=== PATIENT | male | born 1960 | race Caucasian/White ===

== ENCOUNTER 2019-03-05 09:22 | Day surgery (SDC) | payer OTHER ==
[~2019-03-05] VITALS: Ht 180.3 cm; Wt 115.6 kg
[~2019-03-05 09:22] MED LIST: HYDACE5; OXYACE5T PO; PROM25S PR
--- NOTE | 2019-03-05 11:11 | NUR ---
03/05/19 Maggie Ortiz 3 ATTEMPS 1ST RAULITO BLEW SECOND, MOVED THIRD SUCCESS AC
--- NOTE | 2019-03-05 15:19 | NUR ---
03/05/19 1519 Ashia Gomez LATE ENTRY----DURING DISCHARGE INSTRUCTIONS I ALSO WENT OVER WITH THE PATIENT THE RECOMMENDATIONS FROM DR HARTMAN REGARDING THAT HE GET A PRIMARY CARE AND HAVE ROUTINE LABS, PROSTATE CHECK AND ALSO DISCUSS THE POSSIBILITY OF SLEEP APNEA. PATIENT VERBALIZED UNDERSTANDING AND I ALSO WROTE THIS DOWN ON THE WRITTEN INSTRUCTIONS
--- NOTE | 2019-03-05 15:21 | NUR ---
03/05/19 1521 Ashia Gomez LATE ENTRY-----DURING THE PROCEDURE THE PATIENT WOULD OBSTRUCT AND REQUIRED ANGEL LIFT OR JAW THRUST TO KEEP HIM BREATHING. I DID PLACE AN #10 ORAL AIRWAY WHICH PATIENT TOLERATED WITHOUT PROBLEMS
== END 2019-03-05 12:17 | disposition home or self-care (01) ==
LOC: ORSCSDS 09:22
PROVIDERS: Internal Medicine Gastroenterology
PROC: 0DBP8ZX Excision of Rectum, Via Natural or Artificial Opening Endoscopic, Diagnostic (ICD-10-PCS; principal; 2019-03-05 11:00)
PROC: 0DBH8ZX Excision of Cecum, Via Natural or Artificial Opening Endoscopic, Diagnostic (ICD-10-PCS; principal; 2019-03-05 11:00)
PROC: 0DBM8ZX Excision of Descending Colon, Via Natural or Artificial Opening Endoscopic, Diagnostic (ICD-10-PCS; principal; 2019-03-05 11:00)
DX: Z12.11 Encounter for screening for malignant neoplasm of colon (principal); D12.0 Benign neoplasm of cecum; K63.5 Polyp of colon; K62.1 Rectal polyp; K64.8 Other hemorrhoids; K57.30 Diverticulosis of large intestine without perforation or abscess without bleeding; E66.01 Morbid (severe) obesity due to excess calories; Z68.38 Body mass index [BMI] 38.0-38.9, adult
CPT/HCPCS: 88305; J2704; J7120

== ENCOUNTER → 2021-03-06 | Outpatient (CLI) | payer OTHER ==
[~2021-03-06] MED LIST changes: +MONDOXYNE NL100 MG; +MONDOXYNE NL100 MG PO; +PRED1; +Prednisone10 MG PO; +SYMBICORT 160-4.6 GM INH; +SYMBICORT 16010.2 GM; +XARELTO15 MG PO
[2021-03-06 18:44] LABS: Alanine Aminotransfer (ALT/SGP 38 U/L (12-78); Albumin, Blood 2.7 g/dL (3.4-5.0); Albumin/Globulin Ratio 0.6 (0.8-1.8); Alk Phos 54 U/L (40-126); Anion Gap 9 mmol/L (6-16); Aspartate Aminotrans (AST/SGOT 33 U/L (12-37); Bilirubin, Total 0.6 mg/dL (0.1-1.0); Blood Urea Nitrogen 14 mg/dL (8-24); Bun/Creatinine Ratio 12.2 (12.0-20.0); CO2, Blood 25 mmol/L (21-32); Calcium, Blood 8.2 mg/dL (8.5-10.1); Chloride, Blood 99 mmol/L (98-108); Creatinine, Blood 1.15 mg/dL (0.60-1.20); Globulin, Blood 4.3 g/dL (2.2-4.0); Glomerular Filtration Rate >60 (60-); Glucose, Blood 131 mg/dL (70-99); Potassium, Blood 3.8 mmol/L (3.5-5.5); Sodium, Blood 133 mmol/L (136-145)
[2021-03-06 19:12] LABS: BASOPHILS ABSOLUTE AUTO 0.01 K/mm3 (0.00-0.23); BASOPHILS PERCENT AUTO 0 % (0-2); EOSINOPHILS PERCENT AUTO 0 % (0-6); Hematocrit 51.6 % (37.0-53.0); Hemoglobin 17.8 g/dL (13.5-17.5); IMMATURE GRAN ABSOLUTE AUTO 0.02 K/mm3 (0.00-0.10); IMMATURE GRAN PERCENT AUTO 0 % (0-1); LYMPHOCYTES PERCENT AUTO 10 % (21-46); MONOCYTES ABSOLUTE AUTO 0.78 K/mm3 (0.16-1.47); MONOCYTES PERCENT AUTO 11 % (4-13); Mean Corpuscular HGB 29.4 pg (26.0-34.0); Mean Corpuscular HGB Conc 34.5 g/dL (31.5-36.5); Mean Corpuscular Volume 85 fL (80-100); Mean Platelet Volume 12.2 fL (9.1-12.4); NEUTROPHILS ABSOLUTE AUTO 5.73 K/mm3 (1.96-9.15); NEUTROPHILS PERCENT AUTO 79 % (41-73); Platelet Count 95 K/mm3 (150-400); RDW Coefficient Variation 13.3 % (11.7-14.2); RDW Standard Deviation 41.7 fL (35.1-46.3); Red Blood Cell Count 6.05 M/mm3 (4.30-5.90); White Blood Cell Count 7.24 K/mm3 (4.00-11.30)
== END | disposition home or self-care (01) ==
LOC: LAB SHORT 18:30 → LAB 18:30
PROVIDERS: Physician Assistant
DX: U07.1 COVID-19 (principal); J12.82 Pneumonia due to coronavirus disease 2019
CPT/HCPCS: 80053; 85025; 85379

== ENCOUNTER 2021-03-11 18:16 | Inpatient (IN) | payer BC ==
[~2021-03-11] VITALS: Ht 177.8 cm; Wt 114.3 kg
[~2021-03-11 18:16] MED LIST changes: -MONDOXYNE NL100 MG; -PRED1; -SYMBICORT 160-4.6 GM INH; -SYMBICORT 16010.2 GM; -XARELTO15 MG PO
[2021-03-11 19:00] LABS: BASOPHILS ABSOLUTE AUTO 0.09 K/mm3 (0.00-0.23); BASOPHILS PERCENT AUTO 1 % (0-2); EOSINOPHILS PERCENT AUTO 0 % (0-6); Hematocrit 51.1 % (37.0-53.0); Hemoglobin 17.1 g/dL (13.5-17.5); IMMATURE GRAN ABSOLUTE AUTO 0.37 K/mm3 (0.00-0.10); IMMATURE GRAN PERCENT AUTO 3 % (0-1); LYMPHOCYTES ABSOLUTE AUTO 0.48 K/mm3 (0.84-5.20); LYMPHOCYTES PERCENT AUTO 4 % (21-46); MONOCYTES ABSOLUTE AUTO 1.09 K/mm3 (0.16-1.47); MONOCYTES PERCENT AUTO 9 % (4-13); Mean Corpuscular HGB 29.3 pg (26.0-34.0); Mean Corpuscular HGB Conc 33.5 g/dL (31.5-36.5); Mean Corpuscular Volume 88 fL (80-100); Mean Platelet Volume 10.2 fL (9.1-12.4); NEUTROPHILS ABSOLUTE AUTO 9.74 K/mm3 (1.96-9.15); NEUTROPHILS PERCENT AUTO 83 % (41-73); Platelet Count 235 K/mm3 (150-400); RDW Coefficient Variation 13.2 % (11.7-14.2); RDW Standard Deviation 42.4 fL (35.1-46.3); Red Blood Cell Count 5.84 M/mm3 (4.30-5.90); White Blood Cell Count 11.77 K/mm3 (4.00-11.30)
[2021-03-11 19:26] LABS: Alanine Aminotransfer (ALT/SGP 53 U/L (12-78); Albumin, Blood 2.2 g/dL (3.4-5.0); Albumin/Globulin Ratio 0.5 (0.8-1.8); Alk Phos 67 U/L (50-136); Anion Gap 6 mmol/L (6-16); Aspartate Aminotrans (AST/SGOT 44 U/L (12-37); Bilirubin, Total 0.7 mg/dL (0.1-1.0); Blood Urea Nitrogen 24 mg/dL (8-24); Bun/Creatinine Ratio 26.2 (12.0-20.0); CO2, Blood 26 mmol/L (21-32); Calcium, Blood 8.7 mg/dL (8.5-10.1); Chloride, Blood 107 mmol/L (98-108); Creatinine, Blood 0.92 mg/dL (0.60-1.20); Globulin, Blood 4.8 g/dL (2.2-4.0); Glomerular Filtration Rate >60 (60-); Glucose, Blood 195 mg/dL (70-99); Potassium, Blood 4.3 mmol/L (3.5-5.5); Sodium, Blood 139 mmol/L (136-145)
[2021-03-11] MEDS ORDERED: SYMBICORT 16010.2 GM (19:43)
[2021-03-11] MEDS ORDERED: PRED1 (19:43)
[2021-03-11] MEDS ORDERED: MONDOXYNE NL100 MG (19:44)
[2021-03-11] MEDS ORDERED: XARELTO15 MG PO (21:03)
--- NOTE | 2021-03-11 22:20 | NUR ---
ELLIOT ARRIVED TO THE FLOOR VIA GURNEY IN RESPIRTORY DISTRESS. EXHAUSTED FROM TACHYPNEA AROUND 40 BPM. JUST SLIGHT MOVEMENT FROM SIDE TO SIDE CAUSED INCREASE IN RESPIRATION TO 56 BPM, ANXIOUSNESS, ABDOMINAL BREATHING. LS RALES WITH COURSE CRACKLES BILATERALLY. UNABLE TO TALK WITH OUT LOOSING HIS BREATH. SLIGHTLY CONFUSED, PULLING OFF HIS MASK. RT IMMEDIATLY IN THE ROOM TO PLACE ON AIRVO. PATIENT VERY RESTLESS, ANXIOUS, STATING HE COULD NOT BREATH. THEN THE AIR WAS TO HOT. SATS WERE MAINTAINING LOW 80'S ON AIRVO, HAD TO PLACE THE NR ON AT 15L OVER IT. RUNNING 55L WITH FIO2 OF 91%. RT REMAINS IN THE ROOM WHILE CALL IS PLACED TO MD FOR ANXIETY MEDICATION.
--- NOTE | 2021-03-11 22:50 | NUR ---
O2 MAINTAINING 90% ON 55L OF O2 USING NR MASK AND AIRVO, FIO2 IS 100%. RESPIRATIONS ARE BETWEEN 45-55 BPM ABDOMINAL BREATHING. SPOKE TO MD AND GOT ORDER FOR 1MG OF IV ATIVAN. THIS WAS ADMINISTERED AT WHICH HE STOPPED PULLING HIS MASK OFF. GRUNTING EVERY NOW AND THEN TRYING TO CATCH HIS BREATH. CURRENTLY RESTING WHILE WE MONITOR HIS RESPIRTORY STATUS. BED ALARM IS ON.
--- NOTE | 2021-03-11 23:45 | NUR ---
ELLIOT HAS BEEN RESTING AFTER THE ATIVAN, MAINTAINING SATS AT 92% ON AIRVO AND NR MASK. CONTINUES WITH TACHYPNEA, ABDOMINA BREATHING. AT ONE POINT HE JUMPED OUT OF BED PULLING ON ALL THE MASK, WOULD NOT SIT BACK DOWN BECAUSE HE HAD TO USE THE BATHROOM, SWAYING BACK AND FORTH TO USE THE URINAL HE FELL DOWN ON THE BED TOOK WEEK TO STAND, GRUNTING TO CATCH HIS BREATH, SATS DROPPED INTO THE MID 80'S. FINNALLY WAS ABLE TO GET HIM BACK INTO BED, RESPIRATIONS UP TO THE 60'S. SLIGHTLY CONFUSED. AFTER TALKING WITH RT MORA AND DISCUSSING THE PATIENTS RESPIRTORY STATUS IT WAS AGREED THAT HE WOULD DO BETTER BEING PLACED ON CPAP/BIPAP AND MOVED TO PCU HE IS WAS SHOWING SIGNS OF TIRING OUT. WAS NOTIFED, ORDER GIVEN. CHARGE NOITIFED. SPOKE WITH TROY ASHTON FROM PCU FOR REPORT. PATIENT PLACED ON CPAP AND TRANSFERRED TO PCU 7. SISTER LISA NOTIFIED.
[2021-03-12] MEDS ORDERED: SYMBICORT 160-4.6 GM INH (00:21)
[2021-03-12 01:59] LABS: Source, Urine Catheter
[2021-03-12 02:02] LABS: Bilirubin, Urine Neg (Neg); Blood, Urine 1+ (Neg); Glucose Qualitative, Urine Neg (Neg); Ketones, Urine Neg (Neg); Leukocyte Esterase, Urine Neg (Neg); Nitrite, Urine Neg (Neg); Protein, Urine 3+ (Neg); Urobilinogen, Urine NORM (Normal)
--- NOTE | 2021-03-12 02:15 | NUR ---
CARE ASSUMPTION PT ARRIVED TO THE UNIOT ON CPAP AT 18 W 100% FIO2, O2 SATS >94%. PT AFEBRILE BUT VERY TREMULOUS, TEMP CALDERÓN PLACED PER ORDER. PT HYPERTENSIVE W SBP AT 200 SO HYDRALAZINE ORDER OBTAINED AND GIVEN W MODERATE RESULTS. PT CURRENTLY RESTING ON CPAP AT 12 W 75% FIO2.
[2021-03-12 02:16] LABS: Amorphous Mod (0-Heavy); Appearance, Urine Hazy (Clear); Bacteria Few /hpf; Color, Urine Yellow (P-Yellow); Squamous Epithelial Cells Few /hpf (Few); White Blood Cells, Urine 0-2 /hpf (0-5)
[2021-03-12 03:54] LABS: Base Excess Venous 5.9 mmol/L; Bicarbonate Venous 28.8 mmol/L (24.0-30.0); PCO2 Venous 41.4 mmHg (38-42); PO2 Venous 49.7 mmHg (38-42); pH Blood Venous 7.46 (7.34-7.37)
[2021-03-12 04:06] LABS: Mean Corpuscular HGB 28.8 pg (26.0-34.0); Mean Corpuscular HGB Conc 33.3 g/dL (31.5-36.5); Mean Corpuscular Volume 86 fL (80-100); Mean Platelet Volume 9.8 fL (9.1-12.4); Platelet Count 205 K/mm3 (150-400); RDW Standard Deviation 40.6 fL (35.1-46.3); Red Blood Cell Count 5.91 M/mm3 (4.30-5.90); White Blood Cell Count 14.74 K/mm3 (4.00-11.30)
[2021-03-12 04:46] LABS: Anion Gap 6 mmol/L (6-16); Blood Urea Nitrogen 18 mg/dL (8-24); Bun/Creatinine Ratio 22.3 (12.0-20.0); CO2, Blood 29 mmol/L (21-32); Calcium, Blood 8.9 mg/dL (8.5-10.1); Chloride, Blood 106 mmol/L (98-108); Creatinine, Blood 0.81 mg/dL (0.60-1.20); Glomerular Filtration Rate >60 (60-); Glucose, Blood 119 mg/dL (70-99); Potassium, Blood 3.9 mmol/L (3.5-5.5); Sodium, Blood 141 mmol/L (136-145)
--- NOTE | 2021-03-12 06:18 | NUR ---
MVA REACTOR OPERATOR SUMMARY PT HAS MAINTAINED O2 SATS >90% ON CPAP OF 12 W 90% FIO2 THIS SHIFT. PT IS MORE CONFUSED THIS AM AND ATTEMPTED TO GET OUT OF BED RESULTING IN AN ACCIDENTAL REMOVAL OF HIS CPAP CAUSING HIS O2 SATS TO DROP TO 68%, PT REMAINED IN LOW 70% FOR A COUPLE OF MINUTES UNTIL HE WAS ASSISTED ONTO HIOS SIDE AND HIS O2 SATS WENT BACK >89%. TEMP CALDERÓN PLACED AND PT HAVING A FEVER OF >101 SO PT GIVEN TYLENOL AND ICE PACKS PLACED IN ARM PITS TO WHICH HIS TEMP LOWERED. BP ELEVATED W SBP IN THE 200'S SO HYDRALAZINE GIVEN BRINGING SBP DOWN TO THE 160'S. HR HAS BEEN SR IN THE 90'S TO ST IN THE 100'S. WILL REPORT TO NICKOLAS ASHTON
--- NOTE | 2021-03-12 08:45 | NUR ---
PT ALERT AND ORIENTED X4. NEURO WNL. DENIES NUMBNESS/TINGLING. ANXIOUS AND STATES HE IS FEELING OVERWHELMED. BED ALARM ON. PATIENT GETTING OUT OF BED AND PULLING AT MASK. TELE SHOWING SINUS TACH WITH HR 100-110'S. BP ELEVATED. 1+ EDEMA NOTED IN LOWER EXTREMITIES. PPP. ON CPAP AT 12 AND 90% SATING MID-HIGH 90'S. RR 40-50. NO COUGH AT THIS TIME. LUNGS SOUNDING DIM. BOWEL TONES PRESENT. DISTENEDED ABDOMEN. CALDERÓN CATH IN PLACE DRAINING CLEAR/CAMPBELL URINE. SKIN OVERALL C/D/I. SOME DISCOLORATION SURROUNDING KNEES. LR INFUSING AT THIS TIME. CALL LIGHT IN REACH. CALL PLACED TO SISTER TY FOR UPDATE.
--- NOTE | 2021-03-12 12:30 | NUR ---
Pt goes by middle name CHARLES. He confirmed this when asked. Primary person/point of contact for FAMILY UPDATES: is Sister RHONA. Communication contact is sister RHONA [phone]. Pt indicates sons are his surrogate decision makers with nods. He is unable to speak with bipap on. Son Collin(36)local [phone]. Son Deng (39) lives in [place] [phone]. Pt has five siblings - Amalia, Jessica, Sonia, Ramesh and Rhona. Mom, Rita, is 85 and Rhona asks that we not contact her directly for updates. Rhona is keeping rest of the family updated. I was able to wake pt enough to discuss code status and surrogatae medical decision makers with him. He acknowledges that many family members may be involved and supporting each other if that is needed as I began to list the family members who had called to check on him and pass on messages that I delivered to him. He is able to indicate to me with his bedside RN in the room at this point that he would want intubation if needed. He noded yes and said yes. He responded the same to my question re: CPR. I asked if son, Collin, could be his proxy decision maker if he could not communicate with us & if Collin could share decision making with pt's sibs. He nodded yes. I did not know at the time that he has another, older son, who lives out of state, Deng [phone]. I contacted Collin first to update. He was very quiet and tearful on the phone. He asked that his Aunt Rhona continue to be our point of contact and primary person for communication to the rest of the family. When I spoke with Rhona, she agreed to that and stated Collin would need family support. Rhona was able to give me many details re: family and pt hx. She is not aware of any preexisting medical conditions including renal failure previously, outside of hypertention and obesity. He worked for 40 years at [employer]. He lost his to complications of type I diabetes 6 months before he retired. He retired in the last 1-2 years. Full update provided to Rhona and her questions were answered. I assured her and Charles that providers and staff will do everything possible to treat him and pray that he starts to respond to tx/recover. Planned with pt's RN and Rhona to keep her updated t/o the day. We will try to find pt's iphone, charge it and assist with phone calls to sons and siblings when able.
--- NOTE | 2021-03-12 12:40 | NUR ---
UPDATE: PATIENT STARTED ON PRECEDEX. ANXIETY DIMINISHING AND PATIENT SLEEPING ON AND OFF. AROUSABLE TO VOICE. ABLE TO ANSWER YES AND NO QUESTIONS. PRECEDEX IN FUSING AT 1.4 AT THIS TIME. VITAL SIGNS STABLE WITH ELEVATED BP. TEMP TRENDING IN RIGHT DIRECTION. PATIENT TRANSITIONED TO BIPAP WITH SETTINGS 15/8 AT 90%. SATING MID-HIGH 90'S. AVERAGING 35-40 RR. PALLIATIVE CARE IN TO SPEAK WITH PATIENT ABOUT CODE STATES. SEE PALLIATIVE CARE NOTE. PRECEDEX AND REMDESIVIR INFUSING AT THIS TIME. POWERGLIDE PLACED IN RIGHT UPPER ARM. Q2 TURNING. CALL LIGHT IN REACH. WILL CONTINUE TO MONITOR.
--- NOTE | 2021-03-12 15:00 | NUR ---
Update received from pt's RN. Pt has continued to have worsening resp status. Healthcare Sales Representative has visited and planning some resp tx, trying to prevent need for intubation but may be required today. Update called to sister. Will update again with changes and before I leave for the day.
[2021-03-12 15:37] LABS: PCO2 Arterial 42.4 mmHg (35-45); PO2 Arterial 51.6 mmHg (80-100); pH Blood Arterial 7.47 (7.35-7.45)
--- NOTE | 2021-03-12 16:10 | NUR ---
UPDATE RECEIVED FROM PT'S RN. Pt's ABG is not improved from this am with O2 of 51.6. CO2 WNL. Pt will require intubation shortly due to 100% FIO2 on bipap already per RN. Plan is for transfer to ICU and intubation soon. This update was relayed to sister, Rhona. Rhona is appropriately tearful and distressed. Allowed her to give more background and history on pt's life. I asked that she not give up hope at this time. She asked if anyone ever came of the ventilator with covid and I told her yes, and that we are hoping and putting for all efforts so that her brother will also. I will call sister with room # and another update before I leave [facility]. She is keeping multiple other family members updated t/o the day also.
--- NOTE | 2021-03-12 16:21 | NUR ---
TRANSFER TO ICU: PT REMAINS ON PRECEDEX AT 1.4 MCG/KG/HR. ABLE TO WAKE TO VOICE AND SHAKE HEAD YES AND NO. VITAL SIGNS REMAIN STABLE. BP ELEVATED. Q6 HYDRALAZINE. TEMP TRENDING IN RIGHT DIRECTION. BIPAP SETTINGS 15/8 AT 100%. RR STILL ELEVATED 35-[address] DELEON UPDATED OF PLAN. NEBULIZER GIVEN. MINMAL WHEEZING HEARD. ABG DRAWN AND RESULTS SHOWING LOW O2. DR. FLANNERY UPDATED ON ABG RESULTS. PLAN TO TRANSFER TO ICU AND INTUBATE. SPOKE WITH ICU NURSE AND REPORT GIVEN. HONORIO FROM PALLIATIVE CARE UPDATED AND SISTER TY POINT OF CONTACT FOR PATIENT UPDATED. PATIENT TRANSFERRED TO ICU 16 AT THIS TIME.
--- NOTE | 2021-03-12 17:12 | NUR ---
ASSUMED PT CARE REPORT FROM SAMSON RN IN PCU. PT BEING MOVED TO ICU FOR WORSENING HYPOXIA R/T COVID. PLAN TO INTUBATE. FAMILY UPDATED BY SAMSON. PT ARRIVED TO ICU 16 AT 1610, PROVIDER, RT, MULT RNS AT BEDSIDE FOR RSI AND STABLIZATION. INDUCTION WITH 20MG ETOMIDATE AT 1616, IVF (NS) STARTED AT 100ML/HR FOR FLUSHING. PT INTUBATED WITH GLIDESCOPE ON FIRST PASS. 8.0 ETT SECURED AT 26CM AT LIP. COLOR CHANGE AND BILATERAL BREATH SOUNDS NOTED. WILL OBTAIN XRAY. OG PLACED AND SECURED. MODERATE AMOUNT OF CLEAR DRAINAGE OBTAINED. PT GAGGING AND OVER BREATHING VENT INITIALLY, 50MG PROPOFOL GIVEN PER VO FROM DR FLANNERY. 1645 8.5FR CENTRAL LINE PLACED. 1700 PORTABLE XRAY COMPLETE. ALL LINES VERIFIED. PT HAS 18G POWERGLIDE TO RADHA, SITE WNL, DRESSING C/D/I. PT HAS 20G TO LEFT FA AND TO RIGHT AC. BOTH SITES WNL, DRESSINGS C/D/I. TEMP CALDERÓN TO GRAVITY, DRAINING CAMPBELL URINE. ABD SOFT, BOWEL TONES ACTIVE. SKIN INTACT. BILATERAL SOFT WRIST RESTRAINTS SECURE.
--- NOTE | 2021-03-12 18:53 | NUR ---
SHIFT SUMMARY PT REMAINS INTUBATED AND SEDATED AND PARALYZED. KATRIN VENT SETTINGS AC/VC 24/480/20/100 WELL. CENTRAL LINE TO R IJ, SITE WNL, DRESSING C/D/I. PROPOFOL INF AT 50MCG/KG, ROCURONIUM INF AT 5MCG/KG, LEVOPHED INF AT 2MCG, NS AT TKO. CALDERÓN TO GRAVITY WITH CAMPBELL URINE. BILATERAL SOFT WRIST RESTRAINTS SECURE. OG CLAMPED. ETT 8.0 SECURE AT 26CM AT LIP. 20G TO LEFT FA, SITE WNL, DRESSING C/D/I. 20G TO R AC, SITE WNL, DRESSING C/D/I. POWERGLIDE TO RADHA, SITE WNL, DRESSING C/D/I. SKIN INTACT. PT AFEBRILE. LUNG SOUNDS COARSE/DIMINISHED. WILL REPORT TO ONCOMING SHIFT.
[2021-03-12 19:58] LABS: PCO2 Arterial 60.7 mmHg (35-45); PO2 Arterial 125 mmHg (80-100); pH Blood Arterial 7.34 (7.35-7.45)
--- NOTE | 2021-03-12 20:02 | NUR ---
Sister Rhona updated a couple of hours ago and also received update from Dr Jonas on status in ICU. Family very appreciative of updates t/o day. Plan for updating Rhona in am and assured her ICU would call with any major changes in status. Encouragement offered and listened as sister expressed her emotions r/t this event and her love of her brother. His oldest son, Deng & family are coming up tomorrow to be nearby and available to pt and rest of the family for support.
[2021-03-13 03:30] LABS: BASOPHILS ABSOLUTE AUTO 0.07 K/mm3 (0.00-0.23); BASOPHILS PERCENT AUTO 1 % (0-2); EOSINOPHILS PERCENT AUTO 0 % (0-6); Hematocrit 49.5 % (37.0-53.0); Hemoglobin 15.9 g/dL (13.5-17.5); IMMATURE GRAN ABSOLUTE AUTO 0.43 K/mm3 (0.00-0.10); IMMATURE GRAN PERCENT AUTO 3 % (0-1); LYMPHOCYTES ABSOLUTE AUTO 0.31 K/mm3 (0.84-5.20); LYMPHOCYTES PERCENT AUTO 2 % (21-46); MONOCYTES ABSOLUTE AUTO 0.72 K/mm3 (0.16-1.47); MONOCYTES PERCENT AUTO 6 % (4-13); Mean Corpuscular HGB 29.1 pg (26.0-34.0); Mean Corpuscular HGB Conc 32.1 g/dL (31.5-36.5); Mean Platelet Volume 9.7 fL (9.1-12.4); NEUTROPHILS PERCENT AUTO 88 % (41-73); Platelet Count 169 K/mm3 (150-400); RDW Coefficient Variation 13.2 % (11.7-14.2); RDW Standard Deviation 44.7 fL (35.1-46.3); Red Blood Cell Count 5.47 M/mm3 (4.30-5.90); White Blood Cell Count 12.73 K/mm3 (4.00-11.30)
[2021-03-13 03:31] LABS: Mean Corpuscular Volume 91 fL (80-100)
[2021-03-13 03:52] LABS: Alanine Aminotransfer (ALT/SGP 50 U/L (12-78); Albumin, Blood 1.9 g/dL (3.4-5.0); Albumin/Globulin Ratio 0.4 (0.8-1.8); Alk Phos 67 U/L (50-136); Anion Gap 4 mmol/L (6-16); Aspartate Aminotrans (AST/SGOT 21 U/L (12-37); Bilirubin, Total 0.5 mg/dL (0.1-1.0); Blood Urea Nitrogen 27 mg/dL (8-24); Bun/Creatinine Ratio 23.7 (12.0-20.0); CO2, Blood 33 mmol/L (21-32); Calcium, Blood 8.1 mg/dL (8.5-10.1); Chloride, Blood 105 mmol/L (98-108); Creatinine, Blood 1.14 mg/dL (0.60-1.20); Globulin, Blood 4.4 g/dL (2.2-4.0); Glomerular Filtration Rate >60 (60-); Glucose, Blood 171 mg/dL (70-99); Magnesium, Blood 2.1 mg/dL (1.6-2.4); Phosphorus, Blood 4.6 mg/dL (2.5-4.9); Potassium, Blood 4.9 mmol/L (3.5-5.5); Sodium, Blood 142 mmol/L (136-145); Total Protein, Blood 6.3 g/dL (6.4-8.2)
[2021-03-13 04:04] LABS: Source, Urine Catheter
[2021-03-13 04:06] LABS: Bilirubin, Urine Neg (Neg); Blood, Urine 5+ (Neg); Glucose Qualitative, Urine Neg (Neg); Ketones, Urine Neg (Neg); Leukocyte Esterase, Urine Neg (Neg); Nitrite, Urine Neg (Neg); Protein, Urine 3+ (Neg); Specific Gravity, Urine 1.025 (1.003-1.022); Urobilinogen, Urine NORM (Normal)
[2021-03-13 04:26] LABS: Appearance, Urine Hazy (Clear); Bacteria Few /hpf; Color, Urine Yellow (P-Yellow); Mucus Light (0-Heavy); Red Blood Cells, Urine TNTC /hpf (0-2); Squamous Epithelial Cells Not Seen /hpf (Few); White Blood Cells, Urine Rare /hpf (0-5)
[2021-03-13 04:27] LABS: Amorphous Mod (0-Heavy)
[2021-03-13 04:53] LABS: PO2 Arterial 323 mmHg (80-100)
[2021-03-13 04:54] LABS: PCO2 Arterial 70.5 mmHg (35-45); pH Blood Arterial 7.28 (7.35-7.45)
--- NOTE | 2021-03-13 05:39 | NUR ---
DR. JOHNSON CALLED REGARDING CRITICAL ABG. PH 7.28 CO2 70.5. NO CHANGES TO BE MADE PER MD.
--- NOTE | 2021-03-13 07:17 | NUR ---
END OF SHIFT SUMMARY: PATIENT REMAINS INTUBATED/SEDATED. PRONED AT 1999 AND HAD NO DESAT ISSUES. HE HAS BEEN ON LEVOPHED SINCE AROUND 2099. HE HAS BEEN SR/ST. BP IS NOT UP IN THE 160S. HE WAS ON 100% FIO2 FOR A LONG PERIOD OF TIME BUT HE WAS TITRATED DOWN TO 70% THIS MORNING AND DOING WELL. CRITICAL ABG WITH NO CHANGES MADE PER DR. JOHNSON. CENTRAL LINE IS VERY BLOODY DESPITE CHANGING THE DRESSING AND ADDING A CARRIE DRESSING. WILL NEED CHANGED AGAIN ONCE SUPINE.
--- NOTE | 2021-03-13 10:00 | NUR ---
ASSUMED CARE REPORT FROM ADITHYA ASHTON. PT INTUBATED, SEDATED AND PARALYZED. VENT SETTINGS AC/VC 18/480/20/70%. LUNGS CLEAR. PT IN PRONE POSITION, PLAN TO SUPINE AT 1200. PROPOFOL GTT INFUSING, BIS 45-55, ROCURONIUM GTT, TO4 0/4. WILL TITRATE. OGT TO LIS. PLAN TO START TUBE FEEDS TODAY. CVC TO RIJ, OOZING BLOOD. CALDERÓN PATENT, DRAINING TO GRAVITY. VSS. WILL CONTINUE TO MONITOR.
--- NOTE | 2021-03-13 11:30 | NUR ---
Spiritual care visit conducted. Upon hearing from Palliative Care RN Janie Fabian that the patient's sons wanted some time to talk to their father, I facilitate a three way conversation with patient's sons, Deng and Collin. I provide prayer for the patient with them on speaker and then allow them to speak to their father as I place the phone near his ear. Patient shows no response but the Deng and Collin show signs of being conforted. I will continue to remain available to patient and family.
--- NOTE | 2021-03-13 14:41 | NUR ---
Summary: Updates to sister x 2 today on current status. Case conferenced with Cut In Worker Tim and Chaplain Rashid for personal lines account manager coverage and facilitating phone calls from children/family to pt's ear. Family very appreciative of personal lines account manager visits and prayer. Rhona expressed appreciation for updates also.
--- NOTE | 2021-03-13 17:35 | NUR ---
SHIFT SUMMARY PT REMAINS INTUBATED AND SEDATED. VENT SETTINGS AC/VC %. LUNGS CLEAR. MODERATE THIN CLEAR SECRETIONS THROUGH ETT. PROPOFOL AND FENTANYL GTT FOR PAIN AND SEDATION. ROCURONIUM ON STANDBY. VSS. NSR, RATE 90'S. TUBE FEEDS STARTED THIS SHIFT, VHP 25 ML/HR c 30 ML FLUSH q4. CVC OOZING, DR PADILLA SUTURED, IMPROVED. DRESSING CHANGED. CALDERÓN PATENT, DRAINING TO GRAVITY. WILL CONTINUE TO MONITOR UNTIL REPORT TO ONCOMING NURSE.
--- NOTE | 2021-03-13 22:46 | NUR ---
ASSUMED CARE AT 1900 PT LAYING IN BED INTUBATED WITH VENT SETTINGS AC 18, TV 480, PEEP 16, FIO2 65%; MODERATE AMOUNT OF THICK KENNEDY SECREATIONS FROM ETT. PT SEDATED ON PROPOFOL INFUSING AT 60MCG/KG/MIN; GAG WEAK BUT COUGH STRONG. AFEBRILE. HR 90'S. SBP 120'S. VHP INFUSING VIA OG AT GOAL. CALDERÓN IN PLACE AND DRAINING TO GRAVITY. CENTRAL LINE DRESSING TO RT IJ SHOWING SLOW SANGUINEOUS DRAINAGE BUT DRESSING STILL INTACT. SEE SHIFT ASSESSMENT FOR FULL ASSESSMENT.
--- NOTE | 2021-03-13 22:55 | NUR ---
UPDATE WHILE REPOSITIONING PT TO PRONING, RT IJ CENTRAL LINE INCREASED SANGUINEOUS DRAINAGE AND DRESSING SATURATED. PRESSURE APPLIED VIA SAND BAGS AND DRAINAGE DECREASED. DRESSING CHANGED AN HOUR LATER; AREA CLEANED WITH CHLORAPREP, CARRIE DRESSING PAD APPLIED, CHG TEGADERM DRESSING APPLIED ON TOP. SAND BAGS PLACED ON AREA AGAIN. WILL CONT TO MONITOR AREA.
--- NOTE | 2021-03-14 03:24 | NUR ---
UPDATE CALLED DR NOEL REGARDING CONT DRAINAGE FROM RT IJ CENTRAL LINE; THE CARRIE DRESSING APPLIED AT 2230 WAS COMPLETLY SATURATED AND DRAINAGE WAS WEEPING OUT OF THE DRESSING. ORDERS PROVIDED FOR THROMBIN POWDER TO BE APPLIED ONCE. SATURATED DRESSING REMOVED, AREA CLEANED, THROMBIN POWDER APPLIED, CARRIE DRESSING APPLIED, 4X4 GAUZE ON TOP, FOLLOWED BY ADHESIVE DRESSING, WITH COMPRESSION TAPE APPLIED AT THE END. WILL CONT TO MONITOR.
[2021-03-14 03:51] LABS: BASOPHILS ABSOLUTE AUTO 0.03 K/mm3 (0.00-0.23); BASOPHILS PERCENT AUTO 0 % (0-2); EOSINOPHILS PERCENT AUTO 0 % (0-6); Hematocrit 42.3 % (37.0-53.0); Hemoglobin 13.5 g/dL (13.5-17.5); IMMATURE GRAN ABSOLUTE AUTO 0.54 K/mm3 (0.00-0.10); IMMATURE GRAN PERCENT AUTO 6 % (0-1); LYMPHOCYTES ABSOLUTE AUTO 0.28 K/mm3 (0.84-5.20); LYMPHOCYTES PERCENT AUTO 3 % (21-46); MONOCYTES ABSOLUTE AUTO 0.98 K/mm3 (0.16-1.47); MONOCYTES PERCENT AUTO 10 % (4-13); Mean Corpuscular HGB 29.3 pg (26.0-34.0); Mean Corpuscular HGB Conc 31.9 g/dL (31.5-36.5); Mean Corpuscular Volume 92 fL (80-100); NEUTROPHILS ABSOLUTE AUTO 8.03 K/mm3 (1.96-9.15); NEUTROPHILS PERCENT AUTO 82 % (41-73); Platelet Count 209 K/mm3 (150-400); RDW Coefficient Variation 13.4 % (11.7-14.2); RDW Standard Deviation 45.4 fL (35.1-46.3); Red Blood Cell Count 4.61 M/mm3 (4.30-5.90); White Blood Cell Count 9.86 K/mm3 (4.00-11.30)
[2021-03-14 04:14] LABS: BAND PERCENT MAN 1 % (0-8); BASOPHILS PERCENT MAN 0 % (0-2); EOSINOPHILS PERCENT MAN 0 % (0-6); LYMPHOCYTES ABSOLUTE MAN 0.39 K/mm3 (0.84-5.20); LYMPHOCYTES PERCENT MAN 4 % (21-46); MONOCYTES ABSOLUTE MAN 0.29 K/mm3 (0.16-1.47); MONOCYTES PERCENT MAN 3 % (4-13); NEUTROPHILS ABSOLUTE MAN 9.16 K/mm3 (1.96-9.15); SEG NEUTROPHILS PERCENT MAN 92 % (41-73); TOTAL CELLS COUNTED 100
[2021-03-14 04:15] LABS: Albumin, Blood 1.8 g/dL (3.4-5.0); Albumin/Globulin Ratio 0.5 (0.8-1.8); Bilirubin, Total 0.3 mg/dL (0.1-1.0); Bun/Creatinine Ratio 28.6 (12.0-20.0); Calcium, Blood 8.2 mg/dL (8.5-10.1); Creatinine, Blood 1.89 mg/dL (0.60-1.20); Globulin, Blood 3.8 g/dL (2.2-4.0); Magnesium, Blood 2.9 mg/dL (1.6-2.4); Phosphorus, Blood 3.2 mg/dL (2.5-4.9); Potassium, Blood 4.4 mmol/L (3.5-5.5); Total Protein, Blood 5.6 g/dL (6.4-8.2)
--- NOTE | 2021-03-14 06:23 | NUR ---
END OF SHIFT SUMMARY PT CONT TO BE INTUBATED WITH VENT SETTINGS AC 18, TV 480, PEEP 16, FIO2 65%; LARGE AMOUNT OF THICK KENNEDY SECREATIONS FROM ETT. PT REACTIVE TO PAINFUL STIMULI; GAG WEAK, COUGH STRONG; PROPOFOL INFUSING AT 65MCG/KG/MIN. AFEBRILE. HR 70-80'S. SBP 110-120'S. VHP INFUSING VIA OG AT GOAL. CALDERÓN IN PLACE AND DRAINING TO GRAVITY. RT IJ CENTRAL LINE DRESSING BEING WATCHED CAREFULLY AND SLOWLY STARTING TO LEAK AGAIN. WILL REPORT TO AM RN WHEN AVAILABLE.
--- NOTE | 2021-03-14 07:06 | NUR ---
UPDATE RT IJ CENTRAL LINE DRESSING CHECKED AT 0630 AND WAS SATURATED THROUGH ALL PREVIOUS DRESSINGS APPLIED AND A SMALL POOL OF DRAINAGE/BLOOD NOTED UNDER PT CHEST RUNNING DOWN PT CHIN. UNABLE TO CLEAN PT UP WHILE PRONED, REPOSITIONED PT SUPINE TO RE-DRESS CENTRAL LINE. AM SHIFT NOW TAKEN OVER CARE.
[2021-03-14 09:43] LABS: C-REACTIVE PROTEIN, EXT RANGE 15.8 mg/dL (0.000-0.300)
--- NOTE | 2021-03-14 10:43 | NUR ---
ASSUMED CARE REPORT FROM MICK ASHTON AT 0700. PT INTUBATED AND SEDATED. VENT SETTINGS AC/VC 18/480/16/65%. LUNGS COARSE THROUGHOUT. SMALL KENNEDY SECRETIONS THROUGH ETT. COUGH REFLEX PRESENT. PT SUPINED AT SHIFT CHANGE BY NOC SHIFT D/T BLEEDING FROM CVC. CONTINUES TO OOZE. DRESSING CHANGED. TUBE FEEDS AT GOAL, 25 ML/HR. PROPOFOL AND FENTANYL GTT INFUSING OF PAIN AND SEDATION. BP STABLE. SR, RATE 70'S. CALDERÓN PATENT, DRAINING TO GRAVITY. WILL CONTINUE TO MONITOR.
--- NOTE | 2021-03-14 11:03 | NUR ---
Introduction: PT refered by Palliative Care. Assessment: PT presented intubated in bed, sedated. Intervention: Facilitated call for family members and held the phone to PT ear, during call. Offered prayer for family and PT. Outcome: PT received prayer and phone call from family. Follow-Up: As needed or requested.
--- NOTE | 2021-03-14 17:18 | NUR ---
SHIFT SUMMARY PT REMAINS INTUBATED AND SEDATED. VENT SETTINGS AC/VC 18/480/14/50%. LUNGS COARSE. MODERATE KENNEDY SECRETIONS THROUGH ETT. UNRESPONSIVE TO PAINFUL STIMULI. OCCASIONAL COUGH. FENTANYL BODY MAKER MACHINE SETTER D/C'D D/T INTERACTION c ANTIBIOTIC. PROPOFOL GTT FOR SEDATION. CVC REMOVED D/T CONTINUED BLEEDING. CARRIE AND OPSITE PLACED. NO ACTIVE BLEEDING OR HEMATOMA. PT SUPINE AT SHIFT CHANGE. PLAN TO PRONE AT 1999. CALDERÓN PATENT, DRAINING YELLOW URINE c SEDIMENT TO GRAVITY. 450 ML OUT THIS SHIFT. TUBE FEEDS AT GOAL. ABD ROUND, SOFT NON TENDER. BT X 4. BP STABLE. SR, RATE 80'S ON MONITOR. WILL CONTINUE TO MONITOR UNTIL REPORT TO ONCOMING NURSE.
--- NOTE | 2021-03-14 17:58 | NUR ---
Spoke to pt's sister Rhona today to give update. No changes noted in the past 24 hours. Pt's facesheet updated.
--- NOTE | 2021-03-14 22:34 | NUR ---
ASSUMED CARE AT 1900 PT LAYING IN BED INTUBATED WITH VENT SETTINGS AC 18/480/14/50%; MODERATE AMOUNT OF THICK KENNEDY SECREATIONS FROM ETT. PT SEDATED WITH PROPOFOL INFUSING AT 50MCG/KG/MIN; PT REACTIVE TO NOXIOUS STIMULI. AFEBRILE. HR 80'S. SBP 150-160'S. VHP INFUSING AT GOAL VIA OG. CALDERÓN IN PLACE AND DRAINING TO GRAVITY. RT IJ PUNCTURE FROM PREVIOUS CENTRAL LINE DRESSING INTACT BEFORE PRONING; WITH PREVENTATIVE MEASURES IN PLACE WITH PRESSUE DRESSING CONT TO BE INTACT UNTIL PT COUGHED; AFTER THAT, DRESSING BECAME SATURATED AND WEEPING AROUND DRESSING; MANUAL PRESSURE APPLIED FOR 10MIN THAN BLEEDING STOPPED. SEE SHIFT ASSESSMENT FOR FULL ASSESSMENT.
[2021-03-15 04:17] LABS: Magnesium, Blood 3.1 mg/dL (1.6-2.4); Phosphorus, Blood 2.9 mg/dL (2.5-4.9)
[2021-03-15 04:59] LABS: PCO2 Arterial 49.8 mmHg (35-45); PO2 Arterial 64.3 mmHg (80-100); pH Blood Arterial 7.41 (7.35-7.45)
--- NOTE | 2021-03-15 04:59 | NUR ---
UPDATE AT 0000 10MG OF HYDROLAZINE GIVEN DUE TO HNT AND NOT HELPUFL WITH SBP 160-180'S. DR NOEL NOTIFIED AND PROVIDED ORDERS FOR LABETALOL 10-20MG IV Q6 PRN. TWO DOSES OF 10MG OF LABETALOL GIVEN AND NOT HELPFUL. DR NOEL NOTIFIED AGAIN AND PROVIDED ORDERS TO GIVE 20MG OF HYDROLAZINE NOW, CHANGE THE CURRENT ORDER OF HYDROLAZINE TO 10-20MG Q6HR PRN AND IF STILL HYPERTENSIVE AFTER HYDROLAZINE TO START A NITRO GTT.
--- NOTE | 2021-03-15 06:02 | NUR ---
END OF SHIFT ASSESSMENT PT CONT TO BE INTUBATED WITH VENT SETTINGS AC 18/470/16/40%. PT SEDATED WITH PROPOFOL INFUSING AT 65MCG/KG/MIN; ATIVAN GIVEN X3 FOR ADJUNCT WITH SEDATION. HR 70-80'S. SBP 150-180'S; SEE PREVIOUS NOTE ADDRESSING HTN. VHP INFUSING VIA OG AT GOAL. CALDERÓN IN PLACE AND LEAKED T/O SHIFT; ADDED 2ML TO BALLOON AND FLUSHED CALDERÓN; WILL CONT TO MONITOR. PUNCTURE WOUND TO RT IJ DRESSING SOILED TWICE, ATTEMPTED TO CHANGE DRESSING AND WOUND WOULD START STREAMING BLOOD AGAIN; MANUAL PRESSURE APPLIED FOR 10MIN AND BLEEDING STOPPED; DURING ALL REPOSITIONING AND SUCTIONING, PRESSURE APPLIED TO DRESSING TO PREVENT BLEEDING. WILL REPORT TO AM RN WHEN AVAILABLE.
--- NOTE | 2021-03-15 09:12 | NUR ---
ASSUMED CARE AT 0700. PT SEDATED WITH PROPOFOL AND RESTRAINED. VENT SETTINGS 18/480/16/40% TF AT GOAL OF [address]; KEEPING EYE ON SINCE LEAKING LAST NIGHT. INCREASED SBP. GIVEN A ONE TIME DOSE OF FENTANYL, THEN DANIELAUDKAVYA ORDERED FOR A ONE TIME DOSE SINCE PT IS ON LENIZOLD. SBP RESPONDED APPROPRIATELY AND GRIMACE GONE.
--- NOTE | 2021-03-15 12:41 | NUR ---
NO CHANGES THIS AM. VSS. SISTER TY UPDATED VIA PHONE. SHE REQUESTS WE CALL HER FIRST FOR EVERYTHING; CHART UPDATED TO REFLECT THAT
[2021-03-15 14:10] LABS: Source, Urine Catheter
[2021-03-15 14:34] LABS: Appearance, Urine Hazy (Clear); Bilirubin, Urine Neg (Neg); Blood, Urine 5+ (Neg); Color, Urine Yellow (P-Yellow); Glucose Qualitative, Urine 2+ (Neg); Ketones, Urine Neg (Neg); Leukocyte Esterase, Urine 1+ (Neg); Nitrite, Urine Neg (Neg); Protein, Urine 2+ (Neg); Urobilinogen, Urine NORM (Normal)
[2021-03-15 14:36] LABS: Bacteria Many /hpf
[2021-03-15 14:37] LABS: Red Blood Cells, Urine 50-100 /hpf (0-2)
[2021-03-15 14:49] LABS: Renal Epithelial Rare /hpf (0-Rare)
[2021-03-15 14:55] LABS: Calcium Oxalate Crystals Few /hpf; Granular Casts 0-2 /lpf (0); Squamous Epithelial Cells Rare /hpf (Few)
[2021-03-15 17:08] LABS: Potassium, Blood 4.4 mmol/L (3.5-5.5)
[2021-03-15 17:24] LABS: Bun/Creatinine Ratio 39.4 (12.0-20.0); Calcium, Blood 8.2 mg/dL (8.5-10.1); Creatinine, Blood 1.8 mg/dL (0.60-1.20)
--- NOTE | 2021-03-15 18:19 | NUR ---
AT END OF SHIFT PT WAS SUPINED AT 1400. PROPOFOL IS AT 45. NO ATIVAN PUSHES GIVEN. DILAUDID ORDERED PRN AND GIVEN TWICE. PT STARTED SPONTANEOUSLY OPENING EYES. STRONG COUGH ON VENT, STILL NOT FOLLOWING COMMANDS. NEW CALDERÓN IN WITH GOOD OUTPUT, KIDNEY FUNCTION KEEPS RISING WITH CAMPBELL OUTPUT. VENT SETTINGS 18/480/14/40 TF AT GOAL. UPDATED BOTH SISTER AND BOTH SONS CAME TO BEDSIDE TO SEE DAD AND ANSWERED ALL QUESTIONS.
--- NOTE | 2021-03-15 21:42 | NUR ---
ASSUMED CARE PATIENT LYING IN BED INTUBATED ON AC/VC 18/480/12/40% AND SEDATED ON PROPOFOL @ 45MCG/KG/MIN; INSULIN GTT @ 5UNITS/HR AND NS TKO. DRESSING OVER RT IJ FROM REMOVED CENTRAL LINE C/D/I W/O SIGNS OF ACTIVE BLEEDING. TEMP CALDERÓN PATENT AND DRAINING CAMPBELL URINE W/ SEDIMENT. NO FAMILY AT BEDSIDE. TF INF @ 25ML/HR W/ 30ML Q4H WATER FLUSHES. SEE NURSING ASSESSMENT FOR FURTHER ASSESSMENT.
[2021-03-16 04:26] LABS: BASOPHILS ABSOLUTE AUTO 0.04 K/mm3 (0.00-0.23); BASOPHILS PERCENT AUTO 0 % (0-2); EOSINOPHILS PERCENT AUTO 0 % (0-6); Hematocrit 39.7 % (37.0-53.0); Hemoglobin 12.7 g/dL (13.5-17.5); IMMATURE GRAN ABSOLUTE AUTO 0.82 K/mm3 (0.00-0.10); IMMATURE GRAN PERCENT AUTO 7 % (0-1); LYMPHOCYTES PERCENT AUTO 2 % (21-46); MONOCYTES ABSOLUTE AUTO 1.69 K/mm3 (0.16-1.47); MONOCYTES PERCENT AUTO 14 % (4-13); Mean Corpuscular HGB 28.7 pg (26.0-34.0); Mean Corpuscular Volume 90 fL (80-100); Mean Platelet Volume 9.7 fL (9.1-12.4); NEUTROPHILS ABSOLUTE AUTO 9.45 K/mm3 (1.96-9.15); NEUTROPHILS PERCENT AUTO 78 % (41-73); Platelet Count 250 K/mm3 (150-400); RDW Coefficient Variation 13.6 % (11.7-14.2); RDW Standard Deviation 45.1 fL (35.1-46.3); Red Blood Cell Count 4.42 M/mm3 (4.30-5.90)
[2021-03-16 04:55] LABS: Bun/Creatinine Ratio 40.6 (12.0-20.0); Calcium, Blood 8.4 mg/dL (8.5-10.1); Creatinine, Blood 1.75 mg/dL (0.60-1.20); Magnesium, Blood 2.9 mg/dL (1.6-2.4); Phosphorus, Blood 2.7 mg/dL (2.5-4.9); Potassium, Blood 4.1 mmol/L (3.5-5.5)
[2021-03-16 05:24] LABS: BAND PERCENT MAN 7 % (0-8); BASOPHILS PERCENT MAN 0 % (0-2); EOSINOPHILS PERCENT MAN 0 % (0-6); METAMYELOCYTE ABSOLUTE MAN 0.12 K/mm3 (0.00-0.00); METAMYELOCYTE PERCENT MAN 1 % (0-0); MONOCYTES ABSOLUTE MAN 0.48 K/mm3 (0.16-1.47); MONOCYTES PERCENT MAN 4 % (4-13); NEUTROPHILS ABSOLUTE MAN 11.59 K/mm3 (1.96-9.15); SEG NEUTROPHILS PERCENT MAN 88 % (41-73); TOTAL CELLS COUNTED 100
--- NOTE | 2021-03-16 07:04 | NUR ---
SHIFT SUMMARY PATIENT REMAINED INTUBATED AND SEDATED THROUGHOUT SHIFT. WHEN STIMULATED, PATIENT BECAME ALERT AND BEGAN PULLING AT RESTRAINS, LIFTING/TWISTING HEAD, AND BITING ETT. FENTANYL X 2 AND ATIVAN X 1 GIVEN IV DURING SHIFT W/ INCREASE IN PROPOFOL. PATIENT HAD ADEQUATE URINE OUTPUT OF 1600ML AND TF REMAINED @ GOAL RATE 25ML/HR W/ MINIMAL RESIDUAL. PATIENT WAS ABLE TO FOLLOW SIMPLE COMMANDS, NOD HEAD "YES/NO", AND OPEN EYES SPONTANEOUSLY WHILE SUPINE. NO OTHER MAJOR CHANGES DURING SHIFT.
--- NOTE | 2021-03-16 13:44 | NUR ---
EMR reviewed and case conferenced with ICU nurses. T/c to sister, Rhona with an update, which she appreciated. Family struggling with no visits because Charles was the one in the family who always sat with sick family memebers in the past. Pt's oldest son is visiting from [place] and they are getting support and time together as a family but they are all very overwhelmed with Charles's illness. Pal Care to follow for support.
--- NOTE | 2021-03-16 17:56 | NUR ---
PT STILL SEDATED ON PROP AT 60 WITH PRN DILAUDID PUSHES. PT RESPONSIVE TO VERBAL AND PHYSICAL STIMULUS. FOLLOWING COMMANDS. PERRLA. VENT SETTINGS AT 18/480/10/45% CALDERÓN DRAINING WELL. DARK AND SEDIMENT APPEARANCE. STILL NO BM SINCE 03/12 B/S HAVE BEEN OUT OF CONTROL. ON INSULIN GTT STEADY AT 21. FOR NOW WE ARE HOLDING TF UNTIL [address] PADILLA THEN WILL SWITCH BACK TO VITAL HP PER SALES DEVELOPMENT DIRECTOR. B/S CHECKS Q1HR. PT BATHED.
--- NOTE | 2021-03-16 21:30 | NUR ---
assume care PT SUPINE. FOLLOWING COMMANDS. NO SIGNS OF DISTRERSS. NO C/O PAIN AT THIS TIME. PROPOFOL AT 60. PRN MEDS PASSED PRIOR TO PRONING. PT PRONE AT 2030. BS INCREASING. TITRATING INSULIN PER ORDER AND PROTOCOL.
[2021-03-17 03:27] LABS: Hematocrit 39.3 % (37.0-53.0); Hemoglobin 12.7 g/dL (13.5-17.5); Mean Corpuscular HGB 29.5 pg (26.0-34.0); Mean Corpuscular HGB Conc 32.3 g/dL (31.5-36.5); Mean Corpuscular Volume 91 fL (80-100); Mean Platelet Volume 9.7 fL (9.1-12.4); Platelet Count 215 K/mm3 (150-400); RDW Coefficient Variation 13.6 % (11.7-14.2); RDW Standard Deviation 45.9 fL (35.1-46.3); White Blood Cell Count 14.08 K/mm3 (4.00-11.30)
[2021-03-17 03:43] LABS: Bun/Creatinine Ratio 40.1 (12.0-20.0); Calcium, Blood 8.2 mg/dL (8.5-10.1); Creatinine, Blood 1.52 mg/dL (0.60-1.20); Potassium, Blood 4.6 mmol/L (3.5-5.5)
[2021-03-17 05:02] LABS: BAND PERCENT MAN 1 % (0-8); BASOPHILS PERCENT MAN 0 % (0-2); EOSINOPHILS ABSOLUTE MAN 0.14 K/mm3 (0.00-0.68); EOSINOPHILS PERCENT MAN 1 % (0-6); LYMPHOCYTES ABSOLUTE MAN 0.56 K/mm3 (0.84-5.20); LYMPHOCYTES PERCENT MAN 4 % (21-46); MONOCYTES ABSOLUTE MAN 0.98 K/mm3 (0.16-1.47); MONOCYTES PERCENT MAN 7 % (4-13); MYELOCYTE ABSOLUTE MAN 0.14 K/mm3 (0.00-0.00); MYELOCYTE PERCENT MAN 1 % (0-0); NEUTROPHILS ABSOLUTE MAN 12.24 K/mm3 (1.96-9.15); SEG NEUTROPHILS PERCENT MAN 86 % (41-73); TOTAL CELLS COUNTED 100
--- NOTE | 2021-03-17 06:06 | NUR ---
SUMMARY NEURO. PT FOLLOWING COMMANDS. INCREASED SEDATION DUE TO PT REACHING FOR ET TUBE AND ATTEMPTING TO RAISE UPPER BODY OFF MATTRESS WHILE PRONED. PERRL 4MM, RESTRAINED CV-NSR. MILD HTN AT TIMES. RESOLVES WITH PRN MEDS. FOR PAIN. RESP. ON VENT. TOLERATING. SPO2>90% ALL NIGHT. GI ACTIVE BS. TF AT GOAL OF 25ML. RESTARTED AT 2300. BLOOD SUGARS ELEVATED. SEE LAB REPORTS. ON INSLIN AT 21 UNITS/HOUR. CALLED AND STATED TO SHUT OFF DRIP WHEN PT REACHED A BLOOD GLUCOSE OF 200. CURRENTLY AT 252. LANTUS GIVEN PRIOR TO MANAGER PRODUCE LAST NIGHT. . ADEQUATE UOP. CAMPBELL AND CLEAR. SKIN. Maria Victoria PICC HAS BLOOD AT DRESSING SITE. CLOTTED AT THIS TIME. RIJ DRESSING FROM REMOVED LINE WNL. RADHA PG CLEAN DRY INTACT.
--- NOTE | 2021-03-17 10:51 | NUR ---
Received a call from pt's sister, Rhona for an update. As this loan underwriter was looking up information of pt's current condition in the EMR, Rhona stated that the ICU was calling her at the same time. Call ended so that Rhona could receive an update from the ICU staff. PC to continue to follow and support pt/family prn.
[2021-03-17 11:02] LABS: Triglycerides 735 mg/dL (30-160)
--- NOTE | 2021-03-17 18:17 | NUR ---
SHIFT SUMMARY PT DOING WELL THIS SHIFT. PT SWITCHED TO PRESSURE SUPPORT 06/03, FIO2 45% THIS AFTERNOON. PT TOLERATING WELL. PT SWITCHED FROM PROPOFOL TO PRECEDEX AT 0.7 MCG/KG/MIN. PT RESTING IN BED WITH EYES OPEN, BUT IS CALM AND FOLLOWS SIMPLE DIRECTIONS APPROPRIATELY. OGT REMAINS IN PLACE, TF PAUSED FOR 6 HOURS THIS AM, THEN RESTARTED WITH JEVITY 1.2 PER MD ORDERS. PICC TO MARISA REMAINS C/D/I. NS INFUSING TKO AND INSULIN GTT REMAINS AT 21 UNITS/HR. CBG'S STABLE 180-250'S THIS SHIFT. CALDERÓN TEMP PROBE REMAINS IN PLACE WITH DARK GREEN URINE OUTPUT WITH SEDIMENT. SBW RESTRAINTS REMAIN IN PLACE. VITAL SIGNS STABLE. WILL CONTINUE TO MONITOR AND REPORT OFF TO ONCOMING RN.
--- NOTE | 2021-03-18 00:34 | NUR ---
PT CONTINUES TO LOOK AT PERSON SPEAKING TO HIM, ANSWERS WITH HEAD NODS AND SHAKES. HE EXPRESSES HIS DISCOMFORT, SQUEEZES HANDS IN RESPONSE TO QUESTIONS, ENCOURAGEMENT. TOLERATES TURNS AND REPOSITIONS, INSULIN DRIP IS ON STANDBY AT THIS TIME, TF INFUSING @ 25ML. PLACED BACK ON AC /%.
[2021-03-18 04:09] LABS: BASOPHILS ABSOLUTE AUTO 0.09 K/mm3 (0.00-0.23); BASOPHILS PERCENT AUTO 1 % (0-2); EOSINOPHILS ABSOLUTE AUTO 0.01 K/mm3 (0.00-0.68); EOSINOPHILS PERCENT AUTO 0 % (0-6); Hematocrit 39.7 % (37.0-53.0); Hemoglobin 12.7 g/dL (13.5-17.5); IMMATURE GRAN ABSOLUTE AUTO 0.88 K/mm3 (0.00-0.10); IMMATURE GRAN PERCENT AUTO 6 % (0-1); LYMPHOCYTES ABSOLUTE AUTO 0.49 K/mm3 (0.84-5.20); LYMPHOCYTES PERCENT AUTO 4 % (21-46); MONOCYTES ABSOLUTE AUTO 1.49 K/mm3 (0.16-1.47); MONOCYTES PERCENT AUTO 11 % (4-13); Mean Corpuscular HGB 28.9 pg (26.0-34.0); Mean Corpuscular Volume 90 fL (80-100); Mean Platelet Volume 9.9 fL (9.1-12.4); NEUTROPHILS ABSOLUTE AUTO 11.13 K/mm3 (1.96-9.15); NEUTROPHILS PERCENT AUTO 79 % (41-73); Platelet Count 186 K/mm3 (150-400); RDW Coefficient Variation 13.7 % (11.7-14.2); RDW Standard Deviation 45.5 fL (35.1-46.3); Red Blood Cell Count 4.39 M/mm3 (4.30-5.90); White Blood Cell Count 14.09 K/mm3 (4.00-11.30)
[2021-03-18 04:35] LABS: Albumin/Globulin Ratio 0.6 (0.8-1.8); Bilirubin, Total 0.4 mg/dL (0.1-1.0); Bun/Creatinine Ratio 37.4 (12.0-20.0); Calcium, Blood 8.6 mg/dL (8.5-10.1); Creatinine, Blood 1.55 mg/dL (0.60-1.20); Globulin, Blood 3.5 g/dL (2.2-4.0); Potassium, Blood 4.8 mmol/L (3.5-5.5); Total Protein, Blood 5.5 g/dL (6.4-8.2)
[2021-03-18 05:49] LABS: BASOPHILS PERCENT MAN 0 % (0-2); EOSINOPHILS PERCENT MAN 0 % (0-6); LYMPHOCYTES ABSOLUTE MAN 0.28 K/mm3 (0.84-5.20); LYMPHOCYTES PERCENT MAN 2 % (21-46); MYELOCYTE ABSOLUTE MAN 0.56 K/mm3 (0.00-0.00); MYELOCYTE PERCENT MAN 4 % (0-0); PLASMA CELL ABSOLUTE MAN 0.28 K/mm3 (0.00-0.00)
[2021-03-18 05:51] LABS: MONOCYTES PERCENT MAN 10 % (4-13); NEUTROPHILS ABSOLUTE MAN 11.83 K/mm3 (1.96-9.15); SEG NEUTROPHILS PERCENT MAN 84 % (41-73); TOTAL CELLS COUNTED 100
--- NOTE | 2021-03-18 06:45 | NUR ---
MP WAS ABLE TO REST SOME LAST NIGHT. INSULIN WAS TURNED OFF AROUND MIDNIGHT WITH 'S INSTRUCTIONS, BUT AFTER HIS DOSE OF STEROIDS, HIS SUGARS CLIMBED BACK UP, HIS INSULIN WAS RESTARTED AND PLACED BACK AT 20U/HR WITH GOOD RESULTS. HE HAS BEEN ABLE TO COUGH AND MODERATE RETURN OF THICK SPUTUM VIA ETT SUCTIONING. HE HAS BEEN ABLE TO RESPOND WITH HIS EYES AND HEAD AND HANDS, HE MOVES HIS LEGS INDEPENDENTLY AND DID REPOSITION HIMSELF WITH HIS TRUNK. NO CHANGES ON THE VENTILATOR, MEDICATED FOR ELEVATED BLOOD PRESSURE PER AUG.
--- NOTE | 2021-03-18 08:05 | NUR ---
Assumed pt care, at start of shift insulin gtt at 20units/hr, precedex 0.7, Vent settings AC 18, 480, 10, 45%. Pt able to follow simple commands, nod yes and no to questions appropiately. Pt hypertensive with systolics in 170s, tachypneic and coughing over vent. Precedex gtt increased for sedation, metropolol given, suctioned moderate amount creamy secretions from ETT. Pt nods yes to pain, given oxycodone 5mg. Lung sounds coarse. RT at bedside to change pt over for SBT. Insulin gtt per protocol. MD Alcantara updated on pt BG status, request for daily antihypertensive. OGT placement confirmed with air bolus aulscatation, residuals 5ml. FC care provided.
--- NOTE | 2021-03-18 13:07 | NUR ---
MD CALHOUN INFORMED PT SYSTOLICS REMAINS GREATER THAN 160 DESPITE 60MG LABETELOL, 20MG HYDRALAZINE, PRECEDEX AT MAX RATE 1.4, DILAUDID AND ATIVAN PRN PUSHES. HR SR 80S X ONE 6 BEAT RUN OF VTACH. REQUEST FOR ORAL ANTIHYPERTENSIVE.
--- NOTE | 2021-03-18 17:39 | NUR ---
PT TOLERATED SBT ALL SHIFT, PRECEDEX EFFECTIVE IN PROVIDING APPROPIATE SEDATION, PT GIVEN DILAUDID X 2 FOR PAIN. DISCUSSED WITH MD CALHOUN THAT BG HAVE BEEN WELL CONTROLLED THROUGHOUT SHIFT ON INSULIN GTT, HOWEVER NO PLAN TO DC INSULIN GTT TONIGHT PER MD. (PT RECEIVED APPROX 150 UNITS THIS SHIFT). PLAN TO HOPEFULLY EXTUBATE PT TOMORROW MORNING IF CURRENT TRENDS REMAIN.
--- NOTE | 2021-03-18 19:05 | NUR ---
PLEASE NOTE CBG HAVE BEEN DONE EVERY 1 HR AND INSULIN GTT ADJUSTED ACCORDINGLY, HOWEVER NOT ALL CBG VALUES HAVE PULLED OVER INTO SYSTEM.
[2021-03-19 04:25] LABS: Hematocrit 37.9 % (37.0-53.0); Hemoglobin 12.2 g/dL (13.5-17.5); Mean Corpuscular HGB 29.5 pg (26.0-34.0); Mean Corpuscular HGB Conc 32.2 g/dL (31.5-36.5); Mean Corpuscular Volume 92 fL (80-100); Mean Platelet Volume 10.1 fL (9.1-12.4); Platelet Count 150 K/mm3 (150-400); RDW Standard Deviation 47.3 fL (35.1-46.3); Red Blood Cell Count 4.13 M/mm3 (4.30-5.90); White Blood Cell Count 14.89 K/mm3 (4.00-11.30)
[2021-03-19 04:51] LABS: Bun/Creatinine Ratio 35.4 (12.0-20.0); Calcium, Blood 8.3 mg/dL (8.5-10.1); Creatinine, Blood 1.61 mg/dL (0.60-1.20); Potassium, Blood 4.7 mmol/L (3.5-5.5)
[2021-03-19 05:32] LABS: BAND PERCENT MAN 1 % (0-8); BASOPHILS PERCENT MAN 0 % (0-2); EOSINOPHILS PERCENT MAN 0 % (0-6); LYMPHOCYTES ABSOLUTE MAN 0.89 K/mm3 (0.84-5.20); LYMPHOCYTES PERCENT MAN 6 % (21-46); METAMYELOCYTE ABSOLUTE MAN 0.29 K/mm3 (0.00-0.00); METAMYELOCYTE PERCENT MAN 2 % (0-0); MONOCYTES ABSOLUTE MAN 1.48 K/mm3 (0.16-1.47); MONOCYTES PERCENT MAN 10 % (4-13); MYELOCYTE ABSOLUTE MAN 0.29 K/mm3 (0.00-0.00); MYELOCYTE PERCENT MAN 2 % (0-0); NEUTROPHILS ABSOLUTE MAN 11.91 K/mm3 (1.96-9.15); SEG NEUTROPHILS PERCENT MAN 79 % (41-73); TOTAL CELLS COUNTED 100
--- NOTE | 2021-03-19 06:33 | NUR ---
MP HAS DONE WELL T/O THE NOC, HE CONTINUES ON PRESSURE SUPPORT 02/03 @ 45% FIO2. HE HAS MAINTAINED HIS SATS AND TOLERATED WELL. HE IS CONTINUING TO COMMUNICATE WITH HEAD NODS, SHAKES, AND HAND GESTURES. HE HAS BEEN UNRESTRAINED T/O THE NIGHT W/O ANY INCIDENT. HE IS TOLERATING HIS TF WELL, HIS BLOOD GLUCOSE WAS DECLINING T/O THE NIGHT TO THE POINT THE INSULIN DRIP WAS TURNED OFF, UNTIL HE WAS GIVEN HIS AM ANTIBIOTIC WHICH IS MIXED IN DEXTROSE AND HIS STEROID. HE THEN JUMPED BACK TO 230 AND INSULIN WAS PUT ON AT 5U/HR. HE HAD GOOD UO WITH A -1285 FLUID BALANCE. HE WAS JUST MEDICATED AROUND 0600 FOR HIS BLOOD PRESSURE AND ONLY RECEIVED ONE DOSE OF ATIVAN EARLY IN THE EVENING. PRECEDEX REMAINS ON @ 1.4 MCG/KG. CONTINUES TO RETURN THICK ESQUIVEL/WHITE SPUTUM FROM ETT SUCTIONING.
--- NOTE | 2021-03-19 10:53 | NUR ---
PT A/OX4 AEB ABLE TO NOD YES/NO TO QUESTIONS APPROPIATELY. PT UREÑA, FOLLOWS COMMANDS, RESTRAINTS NOT NEEDED AT PT CALM AND COOPERATIVE WITH CARE. PRECEDEX 1.4MCG, INSULIN WAS RESTARTED LAST NOC IN EARLY AM. DISCUSSED WITH MD PADILLA THAT IVABX ARE PREMIXED IN D5 AND THAT BG SPIKE AFTER ADMIN. TF HELD THIS AM PENDING POTENTIAL EXTUBATION. LUNGS CLEAR DIM. RT AND MD ADJUSTING VENT SETTINGS. SISTER UPDATED THAT PLAN IS TO REASSESS PT IN 1 HR ON CURRENT VENT SETTINGS AND THEN DECIDE IF STABLE FOR INTUBATION.
[2021-03-19 11:04] LABS: PCO2 Arterial 47.5 mmHg (35-45); PO2 Arterial 70.3 mmHg (80-100); pH Blood Arterial 7.45 (7.35-7.45)
--- NOTE | 2021-03-19 11:39 | NUR ---
PT EXTUBATED WITH MD ORDER AT 1117, PT ON 10 L NC TO MAINTAIN SATS 90% AND GREATER. PT INSTRUCTED TO COUGH AND DEEP BREATHE, ABLE TO DO SO. PT NOW RESTING. UPDATED PTS SISTER ON PT STATUS.
--- NOTE | 2021-03-19 16:14 | NUR ---
MD STOUT NOTIFED PT OFF INSULIN GTT SINCE NOON, BG 100-150 ON CL DIET. PT CONSVERSING, TOLERATING 10 L NC, SATS 93%, RESP 18-24, PT ABLE TO TCDB. REPOSITIONED EVERY 2 HRS, PT ABLE TO ASSIST WITH TURNS.
--- NOTE | 2021-03-19 18:46 | NUR ---
PT EXTUBATED AT 1117, A/OX4, UREÑA, GEN WEAKNESS. PT ON 10 L THROUGHOUT MOST OF SHIFT. INSULIN GTT OFF AT NOON AFTER SPEAKING WITH MD PADILLA. BG STABLE THROUGHOUT SHIFT. PT PASSED SWALLOW EVAL, CL DIET, TOLERATING WELL. PT GIVEN ACETAMINOPHEN X 1 FOR C/O MILD SWIFT, ATIVAN 2MG IV FOR ANXIETY. PRECEDEX OFF THIS AFTERNOON. PT'S SON AT BEDSIDE. AT 1645 PT DESAT TO 85%, COACHED ON TCDB, INCREASED TO 15 L NC, RT CALLED, RN REQUESTING AIRVO TO IMPROVE PT OXYGENATION.
[2021-03-20 03:26] LABS: BASOPHILS ABSOLUTE AUTO 0.08 K/mm3 (0.00-0.23); BASOPHILS PERCENT AUTO 0 % (0-2); EOSINOPHILS ABSOLUTE AUTO 0.01 K/mm3 (0.00-0.68); EOSINOPHILS PERCENT AUTO 0 % (0-6); Hematocrit 39.1 % (37.0-53.0); Hemoglobin 12.5 g/dL (13.5-17.5); IMMATURE GRAN ABSOLUTE AUTO 0.74 K/mm3 (0.00-0.10); IMMATURE GRAN PERCENT AUTO 4 % (0-1); LYMPHOCYTES ABSOLUTE AUTO 0.94 K/mm3 (0.84-5.20); LYMPHOCYTES PERCENT AUTO 5 % (21-46); MONOCYTES ABSOLUTE AUTO 2.38 K/mm3 (0.16-1.47); MONOCYTES PERCENT AUTO 13 % (4-13); Mean Corpuscular HGB 29.3 pg (26.0-34.0); Mean Corpuscular Volume 92 fL (80-100); Mean Platelet Volume 10.2 fL (9.1-12.4); NEUTROPHILS ABSOLUTE AUTO 13.94 K/mm3 (1.96-9.15); NEUTROPHILS PERCENT AUTO 77 % (41-73); Platelet Count 148 K/mm3 (150-400); RDW Standard Deviation 47.1 fL (35.1-46.3); Red Blood Cell Count 4.27 M/mm3 (4.30-5.90); White Blood Cell Count 18.09 K/mm3 (4.00-11.30)
[2021-03-20 03:40] LABS: Bun/Creatinine Ratio 37.8 (12.0-20.0); C-REACTIVE PROTEIN, EXT RANGE 2.86 mg/dL (0.000-0.300); Calcium, Blood 8.5 mg/dL (8.5-10.1); Creatinine, Blood 1.56 mg/dL (0.60-1.20); Potassium, Blood 4.2 mmol/L (3.5-5.5)
--- NOTE | 2021-03-20 04:40 | NUR ---
PATIENT ALERT TO SELF, PLACE, AND SITUATION (-) TIME "FEB 2020" AT THE END OF SHIFT ALERT AND ORIENTATED X 4, ABLE TO MAKE NEEDS KNOWN, USES CALL LIGHT APPROPRIATELY, ANXIETY AND FEAR OF NOT GETTING BETTER, REASSURANCE THROUGHOUT THE NIGHT, EDUCATION GIVEN ON DEEP BREATHING AND INSPIRAMETRY USE ABLE TO GET TO 800, NEEDS COACHING AND REINFORCEMENT. PATIENT HAD A PRODUCTIVE COUGH NOTED AFTER DRINKING WATER, ABLE TO ORAL SUNCTION HIMSELF APPROPRIATELY, AFTER REMOVING HIS WATER AND PROVIDING HIM WITH SIPS AND EDUCATING HIM ON SLOWING DOWN NO COUGH NOTED, PATIENT DIDN'T SLEEP THE ENTIRE NIGHT UNTIL AROUND 0400. PICC LINE DRESSING WAS CHANGED USING STERILE TECHNIQUE NO NOTED RESIDUAL LEAKING OR BLEEDING, PATENT FLUSHES AND BLOOD RETURN NOTED, CAPS CHANGED, PATIENT PULLED OUT HIS LEFT WRIST PIV THIS EVENING ON ACCIDENT, GOT IT CAUGHT ON THE BEDSIDE TABLE. PATIENT VERY WEAK AT BEGINNING OF SHIFT UNABLE TO LIFT ARMS, LEGS, AT THE END HE WAS ABLE TO LIFT ALL EXTREMITIES AND HOLD FOR OVER FIVE SECONDS. START OF SHIFT PATIENT WAS ON HIFLOW NC 15L SATURATIONS 88-89%, HE HAS BEEN ON AIRVO 45L/65% FIO2 SINCE 2O00 SATURATIONS 90-94%. HE HAS HAD A MILD TEMPERATURE THROUGOUT THE EVENING GAVE TYLENOL WITH NO RESOLVE TEMPERATURE 98.9-99.5. HYPERTENSIVE THIS EVENING SBP>190 DBP>100 HR > 100-117 GAVE HYDRAYLZINE X 1 SBP >150 DBP > 90 HR 122-129 GAVE LABETOLOL X 1 BLOOD PRESSURE WITHIN NORMAL RANGES, AND HR 80-90'S SR. NO FURTHER EPISODES OF HYPERTENSION. PATIENT AT THE END OF SHIFT HAD STATED THAT HE IS HAVING A DIFFICULT TIME WITH CONCENTRAITION AND " PUTTING THE PIECES TOGETHER", HE DOESN'T MAKE EYE CONTACT, REPETITIVE CONCERNS, AND SLOW TO RESPOND. HE IS ABLE TO REDIRECT, CONSOLE AND FOLLOWS COMMANDS. PATIENT ALSO STATED " MY SISTER TAKES CARE OF ME AT HOME, I CAN'T DO IT BY MYSELF". PATIENT ALSO IS FIXATED ON HIS CATETHER AND AFTER EXPLAINING WHY HE HAS IT SEEMED TO COMFORT HIM.
[2021-03-20 05:18] LABS: PCO2 Arterial 46.3 mmHg (35-45); PO2 Arterial 51.2 mmHg (80-100); pH Blood Arterial 7.45 (7.35-7.45)
--- NOTE | 2021-03-20 07:14 | NUR ---
Late note. I conducted a spiritual care visit with Patient's son, Deng on 03/19/21. Deng talks about his gratitude that at this point his dad is showing improvement and yet he understands that he is not out of the marshall yet and will have a long road to recovery. He tells me that he is weary from it all. He tells me he plans to move back to this area from [place] and will take care of his dad and the rest of the family. I provide therapeutic listening, supportive relationship counselor and encourage self-care. Deng responds well and shows signs of increased peace.
--- NOTE | 2021-03-20 10:03 | NUR ---
ASSUMING CARE OF PT. PATIENT SITTING UP IN BED, ALERT TO SELF/ PLACE- DIORIENTED TO SITUATION. RES- N HIGH FLOW 45L/65% FIO2. ABLE TO CLEAR SECRETIONS. BM 03/20/21- LARGE SOFT. CALDERÓN IN PLACE. SKIN INTACT. NO S/S OF DISTRESS. BED ALARM ON .
--- NOTE | 2021-03-20 12:04 | NUR ---
CHANGE OF CARE LEVEL- PT NOW PCU LEVEL OF CARE.
--- NOTE | 2021-03-20 12:29 | NUR ---
Case conferenced with RN and OT. T/C to sister with an update. OT going into the room when I arrived in ICU. Pt now PCU status. I will try to see today. I hear from sister that son Collin planning to come in to see him today.
--- NOTE | 2021-03-20 15:08 | NUR ---
REPORT GIVEN TO JEFF RODRIGUES TRANSPORTED TO PCU WITH ALL BELONGINGS. SON UPDATED AT BEDSIDE.
--- NOTE | 2021-03-21 06:19 | NUR ---
SHIFT SUMMARY PT REMAINS ON BEDREST AND AIRVO. O2 SATS MAINTAIN OVER 89% WITH 50L 48% FIO2. PT ALERT AND ORIENTED. ANXIOUS. COMPLAINS OF IRRITATION FROM AIRVO AND HAS ATTEMPTED TO GET UP A FEW TIMES. INCONTINENT OF STOOL, HAD A LARGE LOOSE BM. CALDERÓN IN PLACE DRAINING YELLOW URINE TO GRAVITY. PICC LINE IN LEFT UPPER ARM PATENT. HYPERTENSIVE, B/P RADHA INTO 170'S SYSTOLIC. MANAGED PER EMAR. LEFT IN BED SLEEPING WITH CALL ALARM AT SIDE. WILL CONTINUE TO MONITOR UNTIL REPORT GIVEN TO DAYSHIFT RN
--- NOTE | 2021-03-21 08:15 | NUR ---
INITIAL ASSESSMENT PATIENT ALERT AND ORIENTED X 4, AFEBRILE. PATIENT DENIES PAIN. PATIENT SLIGHTLY ANXIOUS AT TIMES, BUT IS PLEASANT AND COOPERATIVE. PATIENT DENIES ANY PAIN. PATIENT WEAK BUT ABLE TO MOVE ALL EXTREMITIES. PATIENT ON AIRVO AT 50 L AND 50% FIO2. LUNGS CLEAR IN UPPER LOBES. CRACKLES NOTED IN LOWER LOBES. PATIENT SOB WITH EXERTION. PATIENT IN SR, HR IN THE 80S. SBP IN THE 150S. ABD SOFT, WITH HYPOACTIVE BS NOTED. PATIENT ON CLEAR LIQUID DIET. PATIENT HAD BROWN, SMEAR THIS AM. CALDERÓN DRAINING YELLOW COLORED URINE WITH SEDIMENT NOTED. SCATTERED BRUISES NOTED T/O BODY. PICC SALINE LOCKED. PATIENT OOB TO CHAIR WITH CEILING LIFT AND 3 STAFF MEMBERS. BED LOW, CALL LIGHT IN REACH. WILL CONTINUE TO MONITOR PATIENT FREQUENTLY THROUGHOUT SHIFT.
--- NOTE | 2021-03-21 11:02 | NUR ---
DR. SEAMAN UPDATED ON PATIENT STATUS. INFORMED THAT NO AM LABS PERFORMED THIS AM. ORDER RECEIVED TO ADVANCE DIET TOLERATED.
--- NOTE | 2021-03-21 12:28 | NUR ---
PATIENT REMAINS ALERT AND ORIENTED. PATIENT HAS TEMP OF 99.2 DEGREES FAHRENHEIT. HR 80S TO 90S. SBP 180S. PRN HYDRALAZINE GIVEN. SBP NOW IN 160S. AIRVO AT 50 L AND INCREASED FROM 50% TO 60% FIO2 WHILE EATING LUNCH PATIENT BECOMES SOB. PATIENT INCREASED TO SOFT DIET AND APPEARS TO BE TOLERATING WELL THUS FAR. BLOOD SUGAR OF 186 BEFORE LUNCH GIVEN; COVERAGE ADMINISTERED. NO OTHER ACUTE CHANGES TO NOTE ON AT THIS TIME. PATIENT DENIES PAIN OR DISCOMFORT. WILL CONTINUE TO MONITOR.
--- NOTE | 2021-03-21 16:30 | NUR ---
PATIENT AFEBRILE. PATIENT DENIES PAIN. HR 70S TO 90S. SBP IN THE 150S. FIO2 AT 50%. PATIENT'S SON CAME TO VISIT TODAY. NO OTHER ACUTE CHANGES TO NOTE ON AT THIS TIME. WILL CONTINUE TO MONITOR.
--- NOTE | 2021-03-21 18:24 | NUR ---
SHIFT SUMMARY PATIENT REMAINED ALERT AND ORIENTED X 4. PATIENT AWAKE MOST OF MORNING AND MORE WORN OUT AND TIRED IN AFTERNOON. PATIENT HAD TMAX OF 99.2 DEGREES FAHRENHEIT. PATIENT HAD NO COMPLAINTS OF PAIN THROUGHOUT SHIFT. PATIENT WORKED WITH PT TODAY AND ABLE TO TRANSFER 1 PERSON ASSIST TO [facility] AND BACK TO BED AFTERWARD. PATIENT REMAINED ON AIRVO AT 50 L AND 50 TO 60% FIO2. PATIENT CURRENTLY AT 50% FIO2. LUNGS REMAINED CLEAR IN UPPER LOBES, WITH CRACKLES IN LOWER LOBES. PATIENT REMAINS SOB WITH EXERTION. PATIENT REMAINED IN SR, HR 70S TO 90S. SBP 150S TO 190S. PRN HYDRALAZINE GIVEN ONCE AND PRN LABETALOL GIVEN ONCE THIS SHIFT, PATIENT DIET ADVANCED THROUGHOUT SHIFT. PATIENT TOLERATED SOFT DIET WELL AND WAS ADVANCED TO REGULAR. PATIENT HAD ONE BROWN SMEAR AND ONE SMALL LOOSE BM THIS SHIFT. CALDERÓN DRAINED 2050 MLS OF YELLOW COLORED URINE WITH SEDIMENT NOTED. NO CHANGE TO SKIN. PATIENT REPOSITIONED THROUGHOUT SHIFT. PATIENT OOB TO CHAIR THIS SHIFT. IV S.L. BLOOD SUGARS 120S TO 180S. PATIENT APPEARS COMFORTABLE AT THIS TIME; SLEEPING IN BED. BED LOW, CALL LIGHT IN REACH, BED ALARM ON. REPORT WILL BE GIVEN TO ASSUMING GRANITE CUTTER NURSE SHORTLY.
--- NOTE | 2021-03-21 21:30 | NUR ---
THE PATIENT HAD [address] COY WAS NOTIFED AND NEW ORDERS FOR LABS WAS ENTERED. WILL CONTINUE TO MONITOR.
[2021-03-21 22:49] LABS: Calcium, Blood 8.3 mg/dL (8.5-10.1); Creatinine, Blood 1.36 mg/dL (0.60-1.20); Magnesium, Blood 2.2 mg/dL (1.6-2.4); Potassium, Blood 4.4 mmol/L (3.5-5.5)
--- NOTE | 2021-03-22 06:45 | NUR ---
SHIFT SUMMARY PATIENT IS RESTING COMFORTABLY IN BED. BED IS IN LOW POSITION. CALL LIGHT IS IN REACH. PATIENT DID WELL DURING THE NIGHT. HE HAD [address] COY WAS NOTIFED. EARLY THIS MORNING THE PATIENT'S BLOOD PRESSURE WENT UP SEE EMAR FOR INTERVERNTION. THE PATIENT IS ON AIRVO WITH A MASK 60L AT 65% >90%. NO COMPLAINTS OF PAIN. OTHER VITALS WERE STABLE. WILL CONTINUE TO MONITOR REPORT GIVEN TO DAY SHIFT RN.
--- NOTE | 2021-03-22 08:20 | NUR ---
INITIAL ASSESSMENT PATIENT ALERT AND ORIENTED X 4. AFEBRILE. PATIENT DENIES PAIN. PATIENT WEAK BUT ABLE TO HELP REPOSITION AND TRANSFER WITH 1 PERSON ASSIST. PATIENT ON AIRVO AT 60 L AND 90% FIO2. PATIENT SOB WITH EXERTION. NONPRODUCTIVE COUGH NOTED. LUNGS CLEAR IN UPPER LOBES AND RLL. CRACKLES NOTED IN LLL. PATIENT IN SR, HR IN THE 70S. SBP IN THE 170S. SCHEDULED BP MEDS THIS AM. HYPOACTIVE ABDOMINAL SOUNDS NOTED. PATIENT ON REGULAR DIET. BM ON SHORE WORKER. CALDERÓN IN PLACE DRAINING YELLOW COLORED URINE WITH SEDIMENT NOTED. PATIENT COMPLAINS OF DISCOMFORT FROM CALDERÓN. PATIENT ASKED IF HE WOULD LIKE CALDERÓN TAKEN OUT AND HE STATED "NOT AT THIS TIME". PATIENT CONCERNED THAT USING URINAL WOULD MAKE HIM TOO SOB. SCATTERED BRUISES NOTED T/O BODY. PICC LINE NOT DRAWING BLOOD BACK AT THIS TIME. PICC SALINE FLUSHED. BED LOW, CALL LIGHT IN REACH. WILL CONTINUE TO MONITOR PATIENT FREQUENTLY THROUGHOUT SHIFT.
[2021-03-22 09:00] LABS: Albumin, Blood 2.2 g/dL (3.4-5.0); Anion Gap 1 mmol/L (6-16); Blood Urea Nitrogen 48 mg/dL (8-24); Bun/Creatinine Ratio 33.1 (12.0-20.0); CO2, Blood 32 mmol/L (21-32); Calcium, Blood 8.7 mg/dL (8.5-10.1); Chloride, Blood 109 mmol/L (98-108); Creatinine, Blood 1.45 mg/dL (0.60-1.20); Glomerular Filtration Rate 49 (60-); Glucose, Blood 115 mg/dL (70-99); Phosphorus, Blood 3.2 mg/dL (2.5-4.9); Potassium, Blood 4.2 mmol/L (3.5-5.5); Sodium, Blood 142 mmol/L (136-145)
--- NOTE | 2021-03-22 11:55 | NUR ---
PATIENT HAD 24 BEAT RUN OF VTACH. PATIENT ASYMPTOMATIC. DR. SEAMAN INFORMED. INFORMED OF AM LABS AND THAT NO MAG LEVEL CHECKED THIS AM. INFORMED THAT POTASSIUM AND PHOS BOTH WNL THIS AM. STATED TO MONITOR FOR NOW. NO OTHER ORDERS RECEIVED AT THIS TIME. WILL CONTINUE TO MONITOR.
--- NOTE | 2021-03-22 12:55 | NUR ---
PATIENT AFEBRILE. DENIES PAIN. HR IN THE 80S. SBP STABLE. RR TEENS TO 20S. PATIENT ON AIRVO AT 50 L AND 60% FIO2. BLOOD SUGAR 125; NO COVERAGE INDICATED. NO OTHER ACUTE CHANGES TO NOTE ON AT THIS TIME. WILL CONTINUE TO MONITOR.
--- NOTE | 2021-03-22 17:10 | NUR ---
PATIENT HAS TEMP OF 99.0 DEGREES FAHRENHEIT. PATIENT DENIES PAIN. HR IN THE 80S. SBP 120S TO 160S. FIO2 AT 55%. BLOOD SUGAR OF 119; NO COVERAGE INDICATED. NO OTHER ACUTE CHANGES TO NOTE ON AT THIS TIME. WILL CONTINUE TO MONITOR.
--- NOTE | 2021-03-22 17:58 | NUR ---
Case conferenced with pt's RN earlier today and called update to pt's sister Rhona. Family going to try to wave at pt from outside this evening. They expressed appreciation and gratitude for Charles's progress and care. OT/PT notes reviewed and discussed probable need for in pt rehab stay to [facility] if pt remains limited by SOB and higher liter flow requirements. Will plan to discuss pt's wishes re: dc planning with pt tomorrow. Pt is not medically ready for d/c per review of EMR.
--- NOTE | 2021-03-22 18:45 | NUR ---
SHIFT SUMMARY PATIENT REMAINED ALERT AND ORIENTED X 4. PATIENT HAD NO COMPLAINTS OF PAIN DURING SHIFT. PATIENT HAD TMAX OF 99.0 DEGREES FAHRENHEIT. PATIENT ON AIRVO 60 L AND 90% FIO2 THIS AM. PATIENT NOW ON 50 L AND 55% FIO2. CRACKLES ON AND OFF IN LOWER LUNG LOBES. PATIENT CONTINUES TO HAVE OCCASIONAL NONPRODUCTIVE COUGH. PATIENT REMAINS SOB WITH EXERTION. PATIENT REMAINED IN SR, HR 70S TO 90S. SBP 90S TO 170S. PATIENT RECEIVED PRN LABETALOL OT THIS SHIFT. PATIENT HAD 24 RUN OF ASYMPTOMATIC, VTACH. NO BM THIS SHIFT. PATIENT TOLERATED REGULAR DIET WELL. PATIENT HAD GOOD APPETITE. CALDERÓN DRAINED 875 MLS OF YELLOW COLORED URINE WITH SEDIMENT NOTED. PATIENT DID COMPLAIN OF SOME DISCOMFORT FROM CALDERÓN. PATIENT DECIDED THAT HE WOULD LIKE TO KEEP IT IN FOR NOW. NO CHANGES TO SKIN. PATIENT NOW STARTING TO REPOSITION SELF IN BED. BLOOD SUGARS IN LOW 100S; NO COVERAGE NEEDED. PATIENT REFUSED BED BATH. PATIENT TALKED ON PHONE TO FAMILY AND FAMILY ALSO CAME TO SEE PATIENT FROM WINDOW. PATIENT APPEARS COMFORTABLE AT THIS TIME. BED LOW, CALL LIGHT IN REACH. REPORT WILL BE GIVEN TO [facility] WARD ASSISTANT NURSE SHORTLY.
[2021-03-23 05:57] LABS: BASOPHILS ABSOLUTE AUTO 0.04 K/mm3 (0.00-0.23); BASOPHILS PERCENT AUTO 0 % (0-2); EOSINOPHILS ABSOLUTE AUTO 0.11 K/mm3 (0.00-0.68); EOSINOPHILS PERCENT AUTO 1 % (0-6); Hematocrit 35.9 % (37.0-53.0); Hemoglobin 11.7 g/dL (13.5-17.5); IMMATURE GRAN ABSOLUTE AUTO 0.37 K/mm3 (0.00-0.10); IMMATURE GRAN PERCENT AUTO 3 % (0-1); LYMPHOCYTES ABSOLUTE AUTO 0.79 K/mm3 (0.84-5.20); LYMPHOCYTES PERCENT AUTO 6 % (21-46); MONOCYTES PERCENT AUTO 16 % (4-13); Mean Corpuscular HGB 29.3 pg (26.0-34.0); Mean Corpuscular HGB Conc 32.6 g/dL (31.5-36.5); Mean Corpuscular Volume 90 fL (80-100); Mean Platelet Volume 10.2 fL (9.1-12.4); NEUTROPHILS ABSOLUTE AUTO 9.35 K/mm3 (1.96-9.15); NEUTROPHILS PERCENT AUTO 74 % (41-73); Platelet Count 139 K/mm3 (150-400); RDW Coefficient Variation 13.2 % (11.7-14.2); RDW Standard Deviation 43.7 fL (35.1-46.3); White Blood Cell Count 12.66 K/mm3 (4.00-11.30)
[2021-03-23 06:15] LABS: Albumin, Blood 1.9 g/dL (3.4-5.0); Anion Gap 3 mmol/L (6-16); Blood Urea Nitrogen 42 mg/dL (8-24); Bun/Creatinine Ratio 30.9 (12.0-20.0); CO2, Blood 28 mmol/L (21-32); Calcium, Blood 8.2 mg/dL (8.5-10.1); Chloride, Blood 111 mmol/L (98-108); Creatinine, Blood 1.36 mg/dL (0.60-1.20); Glomerular Filtration Rate 53 (60-); Glucose, Blood 121 mg/dL (70-99); Potassium, Blood 4.2 mmol/L (3.5-5.5); Sodium, Blood 142 mmol/L (136-145)
--- NOTE | 2021-03-23 06:26 | NUR ---
SHIFT SUMMARY PATIENT IS RESTING IN BED COMFORTABLY. BED IS IN LOW POSITION. BED EXIT ALARM IS ON. CALL LIGTH IS IN REACH. PATIENT DID GREAT DURING THE NIGHT. HE PRONED FORM 2200 TO THE MORINGIN AND IS STILL PRONING. HE IS CURRENTLY ON AIRVO 50L 50% FIO2 SATURATING ABOVE 95%. NO COMPLAINTS OF PAIN. PATIENT WAS HYPERTENSIVE AND WAS MEDICATED APPROPRIATE. WILL CONTINUE TO MONITOR. REPORT WILL BE GIVEN TO DAY SHIFT NURSE SHORTLY.
--- NOTE | 2021-03-23 11:30 | NUR ---
NOON ASSESSMENT PT IS RESTING IN SUPINE POSITION WITH HOB ELEVATED AT APPROXIMATELY 30 DEGREES. O2 SATURATIONS DROPPED TO 84% ON AIRVO 40L AT 40%FIO2. O2 INCREASED TO 50% AND PT INSTRUCTEDC TO DEEP BREATHE, O2 SATURATION INCREASED TO 86-88%. VENUS RT NOTIFIED AND SHE INCREASED THE FLOW RATE TO 50%, SATURATIONS NOW >90%. NO OTHER CHANGES TO REPORT AT THIS TIME.
--- NOTE | 2021-03-23 15:25 | NUR ---
AFTERNOON ASSESSMENT PT RESTING IN BED TALKING WITH HIS SON. HIS O2 SATURATION DECREASING TO THE MID 80'S. FIO2 INCREASED BACK TO 50%, AND RESULTED IN IMPROVED O2 SATURATION TO 90%. VENUS Durant RT NOTIFIED OF CHANGES MADE. PHYSICAL THERAPIST AT BEDSIDE FOR MOBILITY. PT SITTING AT EOB WITH THERAPY AND O2 SATURATION RANGING FROM 87-90%. VENUS RT ALSO AT BEDSIDE. SUGGESTED PRONE POSITIONING AFTER THERAPY. LUNG SOUNDS REMAIN DIM T/O. WILL CONTINUE TO MONITOR.
--- NOTE | 2021-03-23 15:51 | NUR ---
Review of EMR and case conf with nursing and RT earlier today. VM left this am for CM re: dc planning and possible need for rehab stay due to deconditioning and cont need for significant O2 supplementation. Pt is doing very well otherwise. He is able to communicate freely with family now by cell phone and all are very happy about that. I did not call sister with an update today because Charles is able to do that now.
--- NOTE | 2021-03-23 17:08 | NUR ---
SHIFT SUMMARY PT HAS BEEN IN GOOD SPIRITS THIS SHIFT. HE WAS ABLE TO SEE IS FAMILY THROUGH THE WINDOW TODAY AND SPOKE WITH THEM OVER THE PHONE. THIS AM FIO2 AND FLOW BOTH DECREASED TO 40 ON THE AIRVO. PT TOLERATED FOR A SHORT TIME BUT REQUIRED INCREASE WHEN PT CHANGED FROM PRONE TO SUPINE POSITION. FIO2 INCREASED TO 45% AND FLOW INCREASED TO 45L/MIN AFTER BREAKFAST. PT TOLERATED WELL UNTIL THE AFTERNOON BUT O2 NEEDED INCREASED AGAIN PRIOR TO THERAPY, FIO2 INCREASED TO 60% AND FLOW AT 45L/MIN, O2 SATURATIONS MAINTAINING MID 90'S AT THIS TIME. PT DOES DESATURATE WITH ACTIVITY TO 88%. PT WAS ABLE TO PARTICIPATE WITH THERAPY THIS AFTERNOON. PT REPORTS SHORTNESS OF BREATH BUT STATES IT IS IMPROVING SINCE ADMIT. WILL CONTINUE TO MONITOR UNTIL REPORT TO CRISTO RN.
[2021-03-23 20:19] LABS: Magnesium, Blood 1.9 mg/dL (1.6-2.4); Potassium, Blood 4.2 mmol/L (3.5-5.5)
[2021-03-24 03:55] LABS: BASOPHILS ABSOLUTE AUTO 0.03 K/mm3 (0.00-0.23); BASOPHILS PERCENT AUTO 0 % (0-2); EOSINOPHILS ABSOLUTE AUTO 0.23 K/mm3 (0.00-0.68); EOSINOPHILS PERCENT AUTO 2 % (0-6); Hematocrit 33.8 % (37.0-53.0); Hemoglobin 11.1 g/dL (13.5-17.5); IMMATURE GRAN ABSOLUTE AUTO 0.33 K/mm3 (0.00-0.10); IMMATURE GRAN PERCENT AUTO 3 % (0-1); LYMPHOCYTES ABSOLUTE AUTO 0.94 K/mm3 (0.84-5.20); LYMPHOCYTES PERCENT AUTO 10 % (21-46); MONOCYTES ABSOLUTE AUTO 1.47 K/mm3 (0.16-1.47); MONOCYTES PERCENT AUTO 15 % (4-13); Mean Corpuscular HGB 29.3 pg (26.0-34.0); Mean Corpuscular HGB Conc 32.8 g/dL (31.5-36.5); Mean Corpuscular Volume 89 fL (80-100); Mean Platelet Volume 9.8 fL (9.1-12.4); NEUTROPHILS ABSOLUTE AUTO 6.75 K/mm3 (1.96-9.15); NEUTROPHILS PERCENT AUTO 69 % (41-73); Platelet Count 138 K/mm3 (150-400); RDW Coefficient Variation 13.2 % (11.7-14.2); RDW Standard Deviation 43.3 fL (35.1-46.3); Red Blood Cell Count 3.79 M/mm3 (4.30-5.90); White Blood Cell Count 9.75 K/mm3 (4.00-11.30)
[2021-03-24 04:08] LABS: Albumin, Blood 1.9 g/dL (3.4-5.0); Anion Gap 3 mmol/L (6-16); Blood Urea Nitrogen 36 mg/dL (8-24); Bun/Creatinine Ratio 25.7 (12.0-20.0); CO2, Blood 29 mmol/L (21-32); Calcium, Blood 8.1 mg/dL (8.5-10.1); Chloride, Blood 109 mmol/L (98-108); Glomerular Filtration Rate 51 (60-); Glucose, Blood 112 mg/dL (70-99); Phosphorus, Blood 3.2 mg/dL (2.5-4.9); Potassium, Blood 3.8 mmol/L (3.5-5.5); Sodium, Blood 141 mmol/L (136-145)
--- NOTE | 2021-03-24 05:43 | NUR ---
SHIFT SUMMARY PATIENT RESTING IN BED THROUGHOUT SHIFT. ABLE TO PRONE ENTIRE MINERAL INDUSTRY TEACHER. ORDER FOR TRAZADONE ADMINISTER TO AID PRONING AND SLEEP. REMAINS ON AIRVO AT 45L, 40% FIO2 WITH OXYGEN SATURATION ABOVE 94%. LABS WERE DRAWN DURING SHIFT DUE TO RUN OF VTACH. POTASSIUM AND MAGNESIUM CAME BACK NORMAL. NO OTHER SIGNIFICANT CHANGES WITH THE PATIENT THIS SHIFT.
--- NOTE | 2021-03-24 12:30 | NUR ---
PT SESSION IN ANTICIPATION OF THERAPY SESSION O2 INCREASED DUE TO PT DESATING THIS AM WHEN ATTEMPTING TO DANGLE AT BEDSIDE. 45L & 70% FIO2 WAS USED DURING THERAPY SESSION; PT'S LOWEST O2 SAT WAS 90%. CURRENTLY UP IN CHAIR & AIRVO REDUCED BACK TO 45L W/ 40% FIO2.
--- NOTE | 2021-03-24 17:59 | NUR ---
SHIFT SUMMARY PT HAS DONE VERY WELL TODAY. TOLERATED WORKING W/ BOTH PT&OT (WITH O2 INCREASED IN PREPARATION) BOTH TIMES OOB. DANGLING AT BEDSIDE FOR DINNER. PT USING IS T/O SHIFT. LUNG SOUNDS SLIGHTLY IMPROVED. NO CARDIAC CHANGES.
[2021-03-25 04:18] LABS: Albumin, Blood 1.9 g/dL (3.4-5.0); Anion Gap 4 mmol/L (6-16); Blood Urea Nitrogen 34 mg/dL (8-24); Bun/Creatinine Ratio 26.6 (12.0-20.0); CO2, Blood 29 mmol/L (21-32); Calcium, Blood 8.3 mg/dL (8.5-10.1); Chloride, Blood 108 mmol/L (98-108); Creatinine, Blood 1.28 mg/dL (0.60-1.20); Glomerular Filtration Rate 57 (60-); Glucose, Blood 137 mg/dL (70-99); Phosphorus, Blood 2.9 mg/dL (2.5-4.9); Potassium, Blood 3.8 mmol/L (3.5-5.5); Sodium, Blood 141 mmol/L (136-145)
--- NOTE | 2021-03-25 06:25 | NUR ---
SHIFT SUMMARY PATIENT IS ALERT AND ORIENTED BUT HAS PERIODS OF FORGETFULLNESS. PATIENT ABLE TO SLEEP THROUGH MOST OF NIGHT. OXYGEN REQUIREMENTS TITRATED DOWN THIS SHIFT. PATIENT CURRENTLY ON 5L HIGH FLOW NC SINCE 0430 THIS AM WITH OXYGEN SATURATION ABOVE 90%. PATIENT ABLE TO CHANGE POSITION IN BED INDEPENDENTLY. ENCOURAGED PRONING OR SIDE LYING MUCH POSSIBLE. PATIENT DID HAVE A RUN OF V TACH OVERNIGHT, PATIENT STATED HISTORY OF THIS AND DOCTOR IS AWARE. SOB AND DESAT WITH EXERTION BUT ABLE TO RECOVER QUICKLY. CALDERÓN IN PLACE DRAINING DARK YELLOW URINE WITH SEDIMENT. NO OTHER SIGNIFICANT CHANGES THIS SHIFT.
--- NOTE | 2021-03-25 09:20 | NUR ---
PT ALERT AND ORIENTED X4. NEURO WNL. DENIES NUMBNESS/TINGLING. PUPILS EQUAL AND REACTIVE. ON 6L HIGH FLOW NASAL CANNULA SATING LOW-MID 90'S. DENIES SOB. OCCASIONAL COUGH. LUNGS SOUNDING DIMINISHED. TELE SHOWING SINUS WITH HR 60-70'S. DENIES CHEST PAIN/PRESSURE. BP STABLE. PPP. NO SIGNS OF EDEMA. BOWEL TONES PRESENT. ATTENDS IN PLACE. CALDERÓN CATH DRAINING CLEAR URINE TO GRAVITY. DENIES NAUSEA/ABDOMINAL PAIN. SKIN OVERALL C/D/I. BRUISING TO LEFT UPPER ARM AROUND PICC LINE. PICC LINE WNL. ABLE TO TAKES MEDS WHOLE WITH WATER. TOLERATING DIET WELL. MOTIVATED TO WORK WITH PT TODAY. CALL LIGHT IN REACH. ABLE TO TURN AND MOVE SELF AROUND IN BED. WILL CONTINUE TO MONITOR.
--- NOTE | 2021-03-25 10:29 | NUR ---
CALDERÓN CATHETER DISCONTINUED AT THIS TIME. REMOVAL WNL.
--- NOTE | 2021-03-25 18:03 | NUR ---
PT ARRIVED TO ROOM 314-1 VIA W/C AND WAS ABLE TO TRANSFER WITH MIN ASSIST TO BED. WISHED TO STAY ON SIDE OF BED AT THAT TIME. ORIENTED TO CALL BUTTON AND INSTRUCTED TO CALL FOR ASSISTANCE WHEN GETTING UP TO MOVE ABOUT IN ROOM. O2 AT 4L/M BY NC WITH HUMIDITY. WILL GIVE REPORT TO ONCOMING SHIFT.
--- NOTE | 2021-03-25 18:12 | NUR ---
TRANSFER TO MEDICAL: NO ACUTE CHANGES, SEE PREVIOUS NOTES. PATIENT ON 4L NASAL CANNULA AT THIS TIME. POSSIBLE DC TOMORROW. PT/OT IN TO WORK WITH PATIENT. DENIES OVERALL PAIN. VITAL SIGNS REMAIN STABLE. REPORTED OFF TO [facility] FLOOR NURSE KATLYN. PATIENT TRANSFERED VIA WHEELCHAIR WITH ALL PERSONAL BELONGINGS.
[2021-03-26 06:16] LABS: Anion Gap 5 mmol/L (6-16); Blood Urea Nitrogen 34 mg/dL (8-24); Bun/Creatinine Ratio 24.1 (12.0-20.0); CO2, Blood 28 mmol/L (21-32); Calcium, Blood 8.4 mg/dL (8.5-10.1); Chloride, Blood 110 mmol/L (98-108); Creatinine, Blood 1.41 mg/dL (0.60-1.20); Glomerular Filtration Rate 51 (60-); Glucose, Blood 108 mg/dL (70-99); Phosphorus, Blood 2.7 mg/dL (2.5-4.9); Potassium, Blood 3.8 mmol/L (3.5-5.5); Sodium, Blood 143 mmol/L (136-145)
--- NOTE | 2021-03-26 06:37 | NUR ---
SHIFT SUMMARY PT IS A 60 Y/O MALE, ADMITTED FOR ACUTE HYPOXEMIC RESPIRATORY FAILURE R/T COVID-19. HE IS A&O X 4, SBA TO THE BSC. PT IS CURRENTLY ON 4L O2, AND DESATS WITH ACTIVITY. TELE SHOWED NSR C PVC @ 63. VITAL SIGNS OTHERWISE STABLE. NO ACUTE CHANGES IN PT CONDITION NOTED DURING THE NIGHT. WILL CONTINUE TO MONITOR AND TREAT PER EMAR UNTIL HAND OFF TO DAY SHIFT RN.
[2021-03-26] MEDS ORDERED: AMLO10 PO (13:57)
[2021-03-26] MEDS ORDERED: DOCU100 PO (13:58)
[2021-03-26] MEDS ORDERED: METO25 PO (14:28)
[2021-03-26] MEDS ORDERED: MULVITA PO (14:35)
[2021-03-26] MEDS ORDERED: MIRALAX17 GM PO (14:36)
[2021-03-26] MEDS ORDERED: TRAZ50 PO (14:37)
[2021-03-26] MEDS ORDERED: Vitamin D1000 UNI1 PO (14:39)
--- NOTE | 2021-03-26 16:57 | NUR ---
PATIENTS DISCHARGED HOME @ 2807
== END 2021-03-26 16:50 | disposition home health service (06) | DRG 207 ==
LOC: ER 18:16 → PCU 21:55 → MEDS 23:29 → ICUW 23:29 → MEDS 23:30 → PCU 03-12 00:34 → ICUW 03-12 16:12 → PCU 03-20 15:09 → MEDS 03-25 17:30
PROVIDERS: Emergency Medicine; Family Medicine; Internal Medicine; Internal Medicine Critical Care Medicine; Student in an Organized Health Care Education/Training Program; ADMIT Internal Medicine
PROC: 5A1955Z Respiratory Ventilation, Greater than 96 Consecutive Hours (ICD-10-PCS; principal; 2021-03-12)
PROC: 3E0333Z Introduction of Anti-inflammatory into Peripheral Vein, Percutaneous Approach (ICD-10-PCS; 2021-03-12)
PROC: XW033E5 Introduction of Remdesivir Anti-infective into Peripheral Vein, Percutaneous Approach, New Technology Group 5 (ICD-10-PCS; 2021-03-12)
PROC: 8E0ZXY6 Isolation (ICD-10-PCS; 2021-03-12)
PROC: 0BH17EZ Insertion of Endotracheal Airway into Trachea, Via Natural or Artificial Opening (ICD-10-PCS; 2021-03-12)
PROC: 5A09357 Assistance with Respiratory Ventilation, Less than 24 Consecutive Hours, Continuous Positive Airway Pressure (ICD-10-PCS; 2021-03-12)
PROC: 05HM33Z Insertion of Infusion Device into Right Internal Jugular Vein, Percutaneous Approach (ICD-10-PCS; 2021-03-12)
PROC: 5A0945A Assistance with Respiratory Ventilation, 24-96 Consecutive Hours, High Flow/Velocity Cannula (ICD-10-PCS; 2021-03-22)
DX: U07.1 COVID-19 (principal); J96.01 Acute respiratory failure with hypoxia; J12.82 Pneumonia due to coronavirus disease 2019; J15.9 Unspecified bacterial pneumonia; N17.9 Acute kidney failure, unspecified; I47.2 Ventricular tachycardia; Z87.442 Personal history of urinary calculi; R73.9 Hyperglycemia, unspecified; Z85.828 Personal history of other malignant neoplasm of skin; Z98.890 Other specified postprocedural states; Z88.0 Allergy status to penicillin; Z79.899 Other long term (current) drug therapy; E66.9 Obesity, unspecified; I95.9 Hypotension, unspecified; T38.0X5A Adverse effect of glucocorticoids and synthetic analogues, initial encounter; Z68.35 Body mass index [BMI] 35.0-35.9, adult
CPT/HCPCS: 31500; 31720; 36415; 36556; 36569; 36600; 51703; 71045; 80048; 80053; 80069; 81001; 82550; 82570; 82803; 82947; 83735; 84100; 84132; 84145; 84300; 84478; 85025; 85027; 85379; 86140; 87040; 87070; 87205; 93005; 93010; 93306; 94002; 94003; 94640; 94664; 94761; 94762; 96374; 96375; 96376; 97110; 97112; 97116; 97162; 97166; 97530; 97535; 99285-25; A9270; C1751; C9113; J0330; J0360; J1100; J1170; J1650; J1815; J1940; J1956; J2020; J2060; J2704; J2930; J3010; J7030; J7050; J7060; J7120; J7512

== ENCOUNTER → 2021-04-28 | Outpatient (CLI) | payer BC ==
[~2021-04-28] MED LIST changes: +AMLO10 PO; +DOCU100 PO; +METO25 PO; +MIRALAX17 GM PO; +MONDOXYNE NL100 MG; +MULVITA PO; +PRED1; +SYMBICORT 160-4.6 GM INH; +SYMBICORT 16010.2 GM; +TRAZ50 PO; +Vitamin D1000 UNI1 PO; +XARELTO15 MG PO
== END ==
LOC: LAB 09:40 → LAB SHORT 09:40
DX: R50.9 Fever, unspecified (principal); Z88.0 Allergy status to penicillin
CPT/HCPCS: 87086; 87106

== ENCOUNTER → 2021-09-05 | Outpatient (CLI) | payer OTHER ==
[2021-09-05 14:45] LABS: BASOPHILS ABSOLUTE AUTO 0.07 K/mm3 (0.00-0.23); BASOPHILS PERCENT AUTO 1 % (0-2); EOSINOPHILS ABSOLUTE AUTO 0.18 K/mm3 (0.00-0.68); EOSINOPHILS PERCENT AUTO 2 % (0-6); Hematocrit 47.7 % (37.0-53.0); Hemoglobin 16.3 g/dL (13.5-17.5); IMMATURE GRAN ABSOLUTE AUTO 0.06 K/mm3 (0.00-0.10); IMMATURE GRAN PERCENT AUTO 1 % (0-1); LYMPHOCYTES ABSOLUTE AUTO 1.55 K/mm3 (0.84-5.20); LYMPHOCYTES PERCENT AUTO 18 % (21-46); MONOCYTES ABSOLUTE AUTO 1.05 K/mm3 (0.16-1.47); MONOCYTES PERCENT AUTO 12 % (4-13); Mean Corpuscular HGB 29.2 pg (26.0-34.0); Mean Corpuscular HGB Conc 34.2 g/dL (31.5-36.5); Mean Corpuscular Volume 86 fL (80-100); Mean Platelet Volume 10.6 fL (9.1-12.4); NEUTROPHILS ABSOLUTE AUTO 5.95 K/mm3 (1.96-9.15); NEUTROPHILS PERCENT AUTO 67 % (41-73); Platelet Count 194 K/mm3 (150-400); RDW Coefficient Variation 13.2 % (11.7-14.2); Red Blood Cell Count 5.58 M/mm3 (4.30-5.90); White Blood Cell Count 8.86 K/mm3 (4.00-11.30)
[2021-09-05 14:54] LABS: Albumin, Blood 3.9 g/dL (3.4-5.0); Albumin/Globulin Ratio 1.1 (0.8-1.8); Bilirubin, Total 0.4 mg/dL (0.1-1.0); Bun/Creatinine Ratio 24.1 (12.0-20.0); Calcium, Blood 9.5 mg/dL (8.5-10.1); Creatinine, Blood 1.37 mg/dL (0.60-1.20); Globulin, Blood 3.6 g/dL (2.2-4.0); Potassium, Blood 3.8 mmol/L (3.5-5.5); Total Protein, Blood 7.5 g/dL (6.4-8.2)
== END ==
LOC: LAB SHORT 14:40
PROVIDERS: General Practice
DX: R10.9 Unspecified abdominal pain (principal)
CPT/HCPCS: 80053; 82150; 85025

== ENCOUNTER → 2021-09-08 | Outpatient (CLI) | payer OTHER ==
[2021-09-08 13:31] LABS: Microalb/Creat Ratio UR, Rand 1136.36 mg/g (0.000-30.000)
== END ==
LOC: LAB 11:07 → LAB SHORT 11:07
PROVIDERS: Nurse Practitioner Family
DX: R80.9 Proteinuria, unspecified (principal)
CPT/HCPCS: 82043; 82570

== ENCOUNTER → 2022-05-04 | Outpatient (CLI) | payer OTHER | LOC: LAB 11:26 → LAB SHORT 11:26 | DX: R30.0 Dysuria (principal) | CPT/HCPCS: 87086 ==

== ENCOUNTER 2024-10-19 10:38 | Emergency (ER) | payer MEDICARE, BC ==
[~2024-10-19] VITALS: Ht 177.8 cm; Wt 83.9 kg
[~2024-10-19 10:38] MED LIST changes: +FINA5 PO; +LOSA25 PO; +TAMS.4ER PO
[2024-10-19 11:10] VITALS: BP 153/84
[2024-10-19] MEDS ORDERED: LIDO700A20 TOP (11:25)
[2024-10-19] MEDS ORDERED: TIZA4 PO (11:25)
[2024-10-19] MEDS ORDERED: MOBIC15 MG PO (11:25)
== END 2024-10-19 11:38 | disposition home or self-care (01) ==
LOC: ER 10:38
DX: M54.17 Radiculopathy, lumbosacral region (principal); Z88.0 Allergy status to penicillin
CPT/HCPCS: 99283